=== PATIENT | female | born 1965 | race Caucasian/White ===

== ENCOUNTER 2020-09-20 15:12 | Outpatient (REF) | payer MEDICARE, SELFPAY ==
[2020-09-20 16:59] LABS: Cholesterol 234 mg/dL; HDL Cholesterol 84 mg/dL; LDL Cholesterol Calculated 133 mg/dl; Triglycerides 85 mg/dL
[2020-09-20 17:00] LABS: Ferritin 7 ng/mL (10-250); Vitamin D 25-OH Total 12.4 ng/mL (>30)
== END 2020-09-20 15:13 | disposition home or self-care (01) ==
LOC: HO.LAB 15:12
PROVIDERS: PCP Internal Medicine; Visit Provider Internal Medicine
DX: Z00.01 Encounter for general adult medical examination with abnormal findings (principal); D50.9 Iron deficiency anemia, unspecified; E03.8 Other specified hypothyroidism; E78.00 Pure hypercholesterolemia, unspecified; F41.0 Panic disorder [episodic paroxysmal anxiety]
CPT/HCPCS: 80061; 82306; 82728

== ENCOUNTER 2021-01-23 13:19 | Outpatient (REF) | payer MEDICARE, SELFPAY ==
[2021-01-23 16:42] LABS: MANUAL DIFF FLAG NO
[2021-01-23 16:47] LABS: Basophils Absolute Auto 0.1 X10*3/uL (0.0-0.2); Basophils Percent Auto 0.9 % (0-2); Eosinophils Absolute Auto 0.2 X10*3/uL (0.0-0.4); Eosinophils Percent Auto 2.6 % (0-4); Hematocrit 40.6 % (37-47); Imm Gran Abs Auto 0.02 X10*3/uL (0.00-0.03); Imm Gran Pct Auto 0.3 % (0.0-0.4); Lymphocytes Absolute Auto 4.1 X10*3/uL (1.2-4.9); Lymphocytes Percent Auto 52.7 % (20-40); Mean Corpuscular Hemoglobin 28.4 pg (27.0-33.0); Mean Corpuscular Volume 88.6 fL (80-98); Mean Platelet Volume 11.1 fL (9.4-12.3); Monocytes Absolute Auto 0.6 X10*3/uL (0.1-1.2); Monocytes Percent Auto 8.2 % (2-11); Neutrophils Absolute Auto 2.7 X10*3/uL (2.0-8.3); Neutrophils Percent Auto 35.3 % (45-73); Platelet Count 359 X10*3/uL (160-400); Red Blood Count 4.58 X10*6/uL (4.20-5.50); Red Cell Distribution Width 16.5 % (11.0-16.0); White Blood Count 7.7 X10*3/uL (4.8-10.8)
[2021-01-23 17:05] LABS: Alanine Aminotransferase 16 U/L (0-31); Albumin Level 4.3 g/dL (3.5-5.0); Alkaline Phosphatase 112 U/L (39-117); Anion Gap 18 (12-20); Aspartate Amino Transferase 20 U/L (5-31); Bilirubin Total 0.3 mg/dL (0.0-1.0); Blood Urea Nitrogen 21 mg/dL (9-16); Calcium 9.2 mg/dL (8.4-10.2); Carbon Dioxide 25 mmol/L (22-29); Chloride 104 mmol/L (96-108); Estimated Glomerular Filt Rate > 60; Glucose Random 77 mg/dL (60-115); Potassium 4.5 mmol/L (3.3-5.1); Sodium 142 mmol/L (135-145); Total Protein 7.3 g/dL (6.5-8.0)
[2021-01-23 17:29] LABS: Ferritin 28 ng/mL (10-250); Thyroid Stimulating Hormone 0.71 uIU/mL (0.32-4.0); Vitamin D 25-OH Total 21.5 ng/mL (>30)
== END 2021-01-23 13:20 | disposition home or self-care (01) ==
LOC: HO.HMGCLDS 13:19
PROVIDERS: PCP Internal Medicine; Visit Provider Internal Medicine
DX: D50.8 Other iron deficiency anemias (principal); E03.9 Hypothyroidism, unspecified; F32.9 Major depressive disorder, single episode, unspecified; F41.0 Panic disorder [episodic paroxysmal anxiety]
CPT/HCPCS: 36415; 80053; 82306; 82728; 84443; 85025

== ENCOUNTER 2021-02-14 10:22 | Outpatient (REF) | payer MEDICARE, SELFPAY ==
--- NOTE | ~2021-02-14 | MM_ITS ---
EXAMINATION: MM SCREENING DIGITAL BREAST TOMOSYNTHESIS, BILATERAL CLINICAL INFORMATION: Screening. Asymptomatic. The lifetime risk of breast cancer based on the Tyrer-Cuzick Model is 11%. COMPARISON: Outside mammography: 05/03/2016, 11/12/2012 ([facility]). TECHNIQUE: Digital breast tomosynthesis is performed in both the craniocaudal and mediolateral oblique views along with computer-aided detection (CAD). Synthesized 2D images are generated from the tomosynthesis. FINDINGS: There are scattered areas of fibroglandular density (ACR BI-RADS breast composition Category b). Breast tissue composition borders on heterogeneously dense in the anterior upper outer breast. There are no significant masses, abnormal calcifications, or other abnormalities. Parenchymal pattern is similar to outside exams. No developing density. The axilla and skin contours are unremarkable. MM/MM tomosynthesis screening BI IMPRESSION: No mammographic evidence of malignancy. ASSESSMENT: BI-RADS 1: Negative RECOMMENDATION: Routine annual mammography screening. This patient's information was entered into a reminder system with a target due date for their next mammogram.
--- NOTE | ~2021-02-14 | MM_ITS ---
EXAMINATION: BONE DENSITOMETRY CLINICAL INDICATION: Menopause. COMPARISON: None (current study represents initial baseline exam). TECHNIQUE: Using a Access Intelligence DXA System (software version: 13.1) manufactured by [employer], dual-energy x-ray absorptiometry was performed of the lumbar spine and left hip. The images are of good technical quality. Summary results are attached. FINDINGS: AP SPINE L1-L4: BMD 1.110 g/cm2, Z-score -0.1, T-score -0.6, normal. LEFT FEMUR, NECK: BMD 0.735 g/cm2, Z-score -1.4, T-score -2.2, osteopenia. LEFT FEMUR, TOTAL: BMD 0.690 g/cm2, Z-score -2.1, T-score -2.5, osteoporosis. IDENTIFIED RISK FACTORS: Menopause. HISTORY OF FRACTURE: None listed. MEDICATIONS: Vitamin D. MM/XR DEXA axial skeleton IMPRESSION: 1. DIAGNOSIS: Osteoporosis based on the lowest T-score value of -2.5 in the total femur applying World Health Organization criteria. 2. 10-YEAR FRACTURE RISK PREDICTION, FRAX: Major osteoporotic fracture (clinical spine, forearm, hip or shoulder) 8.1%. Hip fracture 1.1%. 3. Treatment Recommendations: NOF guidelines recommend consideration for treatment in postmenopausal women and men age 50 and older presenting with the following: -A hip or vertebral (clinical or morphometric) fracture. -T-score less than or equal to -2.5 at the femoral neck or spine after appropriate evaluation to exclude secondary causes. -Low bone mass at the hip or spine and a 10-year fracture probability by FRAX of greater than or equal to 3% for hip fracture or greater than or equal to 20% for major osteoporotic fracture based on the [place] adapted WHO algorithm. 4. Other Recommendations: All treatment decisions require clinical judgment and consideration of individual patient factors, including patient preferences, comorbidities, previous drug use, risk factors not captured in the FRAX model (e.g. frailty, falls, vitamin D deficiency, increased bone turnover, interval significant decline in bone density) and possible under or overestimation of fracture risk by FRAX. Additional medical evaluation for secondary cause of low bone mineral density may be appropriate. FUTURE SCAN RECOMMENDATION: People with diagnosed cases of osteoporosis or at high risk for fracture should have regular bone mineral density tests. For patients eligible for Medicare, routine testing is allowed once every 2 years. The testing frequency can be increased to one year for patients who have rapidly progressing disease, those who are receiving or discontinuing medical therapy to restore bone mass, or have additional risk factors.
== END 2021-02-14 10:23 | disposition home or self-care (01) ==
LOC: HO.MAMMO 10:22
PROVIDERS: Visit Provider Internal Medicine
DX: Z13.820 Encounter for screening for osteoporosis (principal); Z78.0 Asymptomatic menopausal state; Z79.899 Other long term (current) drug therapy; Z12.31 Encounter for screening mammogram for malignant neoplasm of breast
CPT/HCPCS: 77063; 77067; 77080

== ENCOUNTER 2021-06-06 12:30 | Outpatient (REF) | payer MEDICARE, SELFPAY ==
[2021-06-06 14:18] LABS: Alanine Aminotransferase 15 U/L (0-31); Albumin Level 4.2 g/dL (3.5-5.0); Alkaline Phosphatase 109 U/L (39-117); Anion Gap 15 (12-20); Aspartate Amino Transferase 20 U/L (5-31); Bilirubin Total 0.3 mg/dL (0.0-1.0); Blood Urea Nitrogen 22 mg/dL (9-16); Calcium 10.4 mg/dL (8.4-10.2); Carbon Dioxide 25 mmol/L (22-29); Chloride 106 mmol/L (96-108); Cholesterol 257 mg/dL; Estimated Glomerular Filt Rate 58; Glucose Random 95 mg/dL (60-115); HDL Cholesterol 75 mg/dL; LDL Cholesterol Calculated 168 mg/dl; Potassium 4.7 mmol/L (3.3-5.1); Sodium 141 mmol/L (135-145); Total Protein 6.9 g/dL (6.5-8.0); Triglycerides 70 mg/dL
[2021-06-06 14:40] LABS: Thyroid Stimulating Hormone 0.69 uIU/mL (0.32-4.0)
== END 2021-06-06 12:31 | disposition home or self-care (01) ==
LOC: HO.HMGCLDS 12:30
PROVIDERS: PCP Internal Medicine; Visit Provider Internal Medicine
DX: E78.00 Pure hypercholesterolemia, unspecified (principal); E89.0 Postprocedural hypothyroidism; F32.89 Other specified depressive episodes; F51.02 Adjustment insomnia; N64.4 Mastodynia; Z90.81 Acquired absence of spleen
CPT/HCPCS: 36415; 80053; 80061; 84443

== ENCOUNTER 2022-04-09 12:34 | Outpatient (REF) | payer MEDICARE, SELFPAY ==
[2022-04-09 14:16] LABS: Cholesterol 340 mg/dL; HDL Cholesterol 78 mg/dL; LDL Cholesterol Calculated 246 mg/dl; Triglycerides 81 mg/dL
[2022-04-09 14:40] LABS: Thyroid Stimulating Hormone 5.49 uIU/mL (0.32-4.0); Vitamin D 25-OH Total 17.3 ng/mL (>30)
== END 2022-04-09 12:35 | disposition home or self-care (01) ==
LOC: HO.HMGCLDS 12:34
PROVIDERS: PCP Internal Medicine; Visit Provider Internal Medicine
DX: Z00.00 Encounter for general adult medical examination without abnormal findings (principal); E78.00 Pure hypercholesterolemia, unspecified; E89.0 Postprocedural hypothyroidism; K21.00 Gastro-esophageal reflux disease with esophagitis, without bleeding; F32.89 Other specified depressive episodes
CPT/HCPCS: 36415; 80061; 82306; 84443

== ENCOUNTER 2022-06-05 07:16 | Outpatient (REF) | payer MEDICARE, SELFPAY ==
[2022-06-05 11:22] LABS: MANUAL DIFF FLAG NO
[2022-06-05 11:47] LABS: Basophils Absolute Auto 0.1 X10*3/uL (0.0-0.2); Basophils Percent Auto 1.2 % (0-2); Eosinophils Absolute Auto 0.4 X10*3/uL (0.0-0.4); Eosinophils Percent Auto 5.4 % (0-4); Hematocrit 36.2 % (37.0-47.0); Hemoglobin 11.6 g/dl (12.0-16.0); Imm Gran Abs Auto 0.01 X10*3/uL (0.00-0.03); Imm Gran Pct Auto 0.1 % (0.0-0.4); Lymphocytes Percent Auto 52.6 % (20-40); Mean Corpuscular Hemoglobin 27.6 pg (27.0-33.0); Mean Corpuscular Volume 86.2 fL (80.0-98.0); Mean Platelet Volume 11.5 fL (9.4-12.3); Monocytes Absolute Auto 0.6 X10*3/uL (0.1-1.2); Monocytes Percent Auto 8.4 % (2-11); Neutrophils Absolute Auto 2.5 x10*3/uL (2.0-8.3); Neutrophils Percent Auto 32.3 % (45-73); Platelet Count 287 X10*3/uL (160-400); Red Cell Distribution Width 15.9 % (11.0-16.0); White Blood Count 7.7 X10*3/uL (4.8-10.8)
[2022-06-05 12:01] LABS: Thyroid Stimulating Hormone 0.95 uIU/mL (0.32-4.0)
[2022-06-05 12:07] LABS: Alanine Aminotransferase 22 U/L (0-31); Albumin Level 4.3 g/dL (3.5-5.0); Alkaline Phosphatase 97 U/L (39-117); Anion Gap 17 (12-20); Aspartate Amino Transferase 28 U/L (5-31); Bilirubin Total 0.4 mg/dL (0.0-1.0); Blood Urea Nitrogen 24 mg/dL (9-16); Calcium 8.9 mg/dL (8.4-10.2); Carbon Dioxide 20 mmol/L (22-29); Chloride 108 mmol/L (96-108); Cholesterol 173 mg/dL; Estimated Glomerular Filt Rate 44; Glucose Random 92 mg/dL (60-115); HDL Cholesterol 79 mg/dL; LDL Cholesterol Calculated 80 mg/dl; Potassium 4.1 mmol/L (3.3-5.1); Sodium 141 mmol/L (135-145); Triglycerides 72 mg/dL
== END 2022-06-05 07:17 | disposition home or self-care (01) ==
LOC: HO.HMGCLDS 07:16
PROVIDERS: PCP Internal Medicine; Visit Provider Internal Medicine
DX: E78.00 Pure hypercholesterolemia, unspecified (principal); E89.0 Postprocedural hypothyroidism; F32.9 Major depressive disorder, single episode, unspecified; F41.0 Panic disorder [episodic paroxysmal anxiety]
CPT/HCPCS: 36415; 80053; 80061; 84443; 85025

== ENCOUNTER 2023-02-05 11:30 | Outpatient (REF) | payer MEDICARE, SELFPAY ==
[2023-02-05 14:05] LABS: MANUAL DIFF FLAG NO
[2023-02-05 14:10] LABS: Basophils Absolute Auto 0.1 X10*3/uL (0.0-0.2); Basophils Percent Auto 0.8 % (0-2); Eosinophils Absolute Auto 0.3 X10*3/uL (0.0-0.4); Eosinophils Percent Auto 3.8 % (0-4); Hematocrit 39.4 % (37.0-47.0); Hemoglobin 13.1 g/dl (12.0-16.0); Imm Gran Abs Auto 0.02 X10*3/uL (0.00-0.03); Imm Gran Pct Auto 0.3 % (0.0-0.4); Lymphocytes Absolute Auto 2.9 X10*3/uL (1.2-4.9); Lymphocytes Percent Auto 43.9 % (20-40); Mean Corpuscular HGB Conc 33.2 g/dl (31.0-35.0); Mean Corpuscular Hemoglobin 27.9 pg (27.0-33.0); Mean Corpuscular Volume 83.8 fL (80.0-98.0); Mean Platelet Volume 11.3 fL (9.4-12.3); Monocytes Absolute Auto 0.5 X10*3/uL (0.1-1.2); Monocytes Percent Auto 7.4 % (2-11); Neutrophils Absolute Auto 2.9 x10*3/uL (2.0-8.3); Neutrophils Percent Auto 43.8 % (45-73); Platelet Count 300 X10*3/uL (160-400); Red Cell Distribution Width 16.3 % (11.0-16.0); White Blood Count 6.5 X10*3/uL (4.8-10.8)
[2023-02-05 14:48] LABS: Alanine Aminotransferase 32 U/L (0-31); Alkaline Phosphatase 97 U/L (39-117); Anion Gap 13 (12-20); Aspartate Amino Transferase 34 U/L (5-31); Bilirubin Total 0.5 mg/dL (0.0-1.0); Blood Urea Nitrogen 18 mg/dL (9-16); Calcium 9.1 mg/dL (8.4-10.2); Carbon Dioxide 22 mmol/L (22-29); Chloride 108 mmol/L (96-108); Estimated Glomerular Filt Rate 39; Glucose Random 107 mg/dL (60-115); Potassium 3.9 mmol/L (3.3-5.1); Sodium 139 mmol/L (135-145); Total Protein 6.6 g/dL (6.5-8.0)
[2023-02-05 15:03] LABS: Thyroid Stimulating Hormone 0.02 uIU/mL (0.32-4.0)
== END 2023-02-05 11:31 | disposition home or self-care (01) ==
LOC: HO.HMGCLDS 11:30
PROVIDERS: PCP Internal Medicine; Visit Provider Internal Medicine
DX: Z00.00 Encounter for general adult medical examination without abnormal findings (principal); E78.00 Pure hypercholesterolemia, unspecified; E89.0 Postprocedural hypothyroidism; K21.9 Gastro-esophageal reflux disease without esophagitis; M70.62 Trochanteric bursitis, left hip
CPT/HCPCS: 36415; 80053; 84443; 85025

== ENCOUNTER 2023-06-27 10:34 | Outpatient (REF) | payer MEDICARE, SELFPAY ==
[2023-06-27 13:41] LABS: MANUAL DIFF FLAG NO
[2023-06-27 13:53] LABS: Basophils Absolute Auto 0.1 X10*3/uL (0.0-0.2); Eosinophils Absolute Auto 0.3 X10*3/uL (0.0-0.4); Eosinophils Percent Auto 3.7 % (0-4); Hematocrit 36.8 % (37.0-47.0); Hemoglobin 12.1 g/dl (12.0-16.0); Imm Gran Abs Auto 0.02 X10*3/uL (0.00-0.03); Imm Gran Pct Auto 0.3 % (0.0-0.4); Lymphocytes Absolute Auto 3.2 X10*3/uL (1.2-4.9); Lymphocytes Percent Auto 48.5 % (20-40); Mean Corpuscular HGB Conc 32.9 g/dl (31.0-35.0); Mean Corpuscular Volume 88.2 fL (80.0-98.0); Mean Platelet Volume 11.2 fL (9.4-12.3); Monocytes Absolute Auto 0.5 X10*3/uL (0.1-1.2); Monocytes Percent Auto 7.9 % (2-11); Neutrophils Absolute Auto 2.6 x10*3/uL (2.0-8.3); Neutrophils Percent Auto 38.6 % (45-73); Platelet Count 263 X10*3/uL (160-400); Red Blood Count 4.17 X10*6/uL (4.20-5.50); Red Cell Distribution Width 16.8 % (11.0-16.0); White Blood Count 6.7 X10*3/uL (4.8-10.8)
[2023-06-27 14:19] LABS: Alanine Aminotransferase 31 U/L (0-31); Albumin Level 4.1 g/dL (3.5-5.0); Alkaline Phosphatase 75 U/L (39-117); Anion Gap 11 (12-20); Aspartate Amino Transferase 36 U/L (5-31); Bilirubin Total 0.5 mg/dL (0.0-1.0); Blood Urea Nitrogen 20 mg/dL (9-16); Calcium 9.3 mg/dL (8.4-10.2); Carbon Dioxide 26 mmol/L (22-29); Chloride 106 mmol/L (96-108); Cholesterol 170 mg/dL (<200); Estimated Glomerular Filt Rate 44; Glucose Random 95 mg/dL (60-115); HDL Cholesterol 78 mg/dL (>40); LDL Cholesterol Calculated 77 mg/dL (<100); Potassium 4.2 mmol/L (3.3-5.1); Sodium 139 mmol/L (135-145); Total Protein 7.1 g/dL (6.5-8.0); Triglycerides 79 mg/dL (<150)
[2023-06-27 14:41] LABS: Thyroid Stimulating Hormone 0.34 uIU/mL (0.32-4.0); Vitamin D 25-OH Total 46.5 ng/mL (>30)
== END 2023-06-27 10:35 | disposition home or self-care (01) ==
LOC: HO.HMGCLDS 10:34
PROVIDERS: PCP Internal Medicine; Visit Provider Internal Medicine
DX: E05.90 Thyrotoxicosis, unspecified without thyrotoxic crisis or storm (principal); E89.0 Postprocedural hypothyroidism; F32.9 Major depressive disorder, single episode, unspecified; N18.9 Chronic kidney disease, unspecified; R12 Heartburn
CPT/HCPCS: 36415; 80053; 80061; 82306; 84443; 85025

== ENCOUNTER 2023-12-03 15:48 | Outpatient (AMB) | payer MEDICARE, SELFPAY ==
--- NOTE | 2023-12-03 16:14 | MHC.PC.OV ---
Vital Signs 12/03/23 16:15 Height 5 ft 0.5 in Weight 173 lb 8 oz BMI 33.3 BP 128/82 Blood Pressure Location Rt brachial Position Sitting Pulse 94 Pulse Source Pulse Oximeter Pulse Oximetry (%) 97 Oxygen Delivery Method Room Air Intake Visit Reasons: Annual PE Intake Note: Pt is [facility] to [facility] care and Annual PE Pt is over due for her Mammo Allergies apples Allergy (Unknown, Uncoded 12/03/23 16:22) anaphylaxis TREE NUTS Allergy (Unknown, Uncoded 12/03/23 16:22) RASH tree nuts Allergy (Unknown, Uncoded 12/03/23 16:22) anaphylaxis Medication List - Last Reconciled 12/03/23 by JOSE Gordon fluoxetine 40 mg PO DAILY hydroxyzine HCl 50 mg PO QID PRN levothyroxine 100 mcg PO DAILY omeprazole 40 mg PO DAILY quetiapine 50 mg PO QDAY rosuvastatin 40 mg PO DAILY Tobacco use date assessed: 12/03/23 Dental Screening Dental Screen Date: 12/03/23 Did you have a dental visit in the last 12 months?: Yes Did you have a dental problem in the last 6 months where you did not have access to dental care?: No Was dental information given to patient?: Patient has dentist HPI Annual PE HPI Details New pt is here for a PE. Will order labs. Due for mammo, will order. Colon screen is up to date. Pt does not have a meat scrubber, will refer. Pt reports she financially can't afford or therapist or psychiatrist, though reports she is doing well on her current med regime. Pt reports having a lot of trauma in their life. Pt reports being unemployed in March of 2017. She does report that she has high anxiety, seldom leaving her house because of it. Will have team reach out to pt. Denies any SI and HI. Hx of vitamin D deficiency, will order labs. [facility] Medical History (Updated 12/03/23 @ 17:26 by JOSE Gordon) Idiopathic thrombocytopenic purpura (ITP) Hodgkins lymphoma Surgical History (Updated 12/03/23 @ 17:26 by JOSE Gordon) History of splenectomy Social History Housing: Condominium Patient Tobacco Use Status: Never used Tobacco e-Cigarette/Vaping Use: Never Used Second Hand Smoke Exposure: No service: No Current occupational status: disabled Cognitive needs: No Hearing needs: No Vision needs: No Questionnaire PHQ-9 Over the last 2 weeks, how often have you been bothered by any of the following problems? 1. Little interest or pleasure in doing things: more than half the days 2. Feeling down, depressed, or hopeless: more than half the days 3. Trouble falling or staying asleep, or sleeping too much: nearly every day 4. Feeling tired or having little energy: more than half the days 5. Poor appetite or overeating: nearly every day 6. Feeling bad about yourself - or that you are a failure or have let yourself or your family down: more than half the days 7. Trouble concentrating on things, such as reading the newspaper or watching television: several days 8. Moving or speaking so slowly that other people could have noticed. Or the opposite - being so fidgety or restless that you have been moving around a lot more than usual: not at all 9. Thoughts that you would be better off or of hurting yourself in some way: not at all Total score: 15 Depression Screening Interpretation: Positive Depression Screening Follow-up: Existing condition and Community Mental Health Worker F/U Depression Screening Done: Yes 34865 - PHQ-9 Billing: Yes Source: Developed by Drs. Rolando Mendoza, Carol Michaels, Rashaad Thornton and colleagues, with an educational donita from [employer]. Thrive Questionnaire Date Thrive assessed: 12/03/23 I am a: Patient What is your living situation today?: I have a steady place to live Within the past 12 months, did the food you bought not last and you didn't have the money to get more?: Sometimes True Within the past 12 months, did you worry whether your food would run out before you got money to buy more?: Often true Do you have trouble getting transportation to medical appointments?: No Do you have trouble paying your heating and electricity bill?: Yes Do you have trouble taking care of your child, family member or friend?: No Do you have trouble with day-to-day activities such as bathing, preparing meals, shopping, managing finances, etc.?: Yes Are you currently unemployed and looking for a job?: Yes Are you interested in more education?: Yes Currently or been in a relationship where the following occur: no concerns reported THRIVE Score: 3 AUDIT C Alcohol Use Questionnaire (AUDIT-C) 1. How often do you have a drink containing alcohol?: Never 3. How often do you have six or more drinks on one occasion?: Never Total Score: 0 Score Reviewed/Action Taken: Yes DARREN-7 AMB Questionnaire DARREN-7 Date DARREN - 7 assessed: 12/03/23 Feeling nervous, anxious, or on edge: 3 = Nearly every day Not being able to stop or control worryin = More than half the days Worrying too much about different things: 3 = Nearly every day Trouble relaxin = Nearly every day Being so restless that it is hard to sit still: 2 = More than half the days Becoming easily annoyed or irritable: 0 = Not at all Feeling afraid as if something awful might happen: 2 = More than half the days Total DARREN-7 score (0-4 normal; 5-9 mild; 10-14 moderate; 15-21 severe): 15 Source: Developed by Drs. Rolando Mendoza, Carol Michaels, Rashaad Thornton and colleagues, with an educational donita from [employer]. DARREN-7 Assessment Billing DARREN-7 Assessment Tool: DARREN-7 Assessment 24946 (will speak with our team, pt could use a therapist/psychiatrist) Review of Systems Const Denies chills and Denies fever(s) Eyes Denies blurry vision ENT Denies vertigo, Denies dizziness and Denies sore throat Card Denies chest pain at rest, Denies chest pain with activity, Denies diaphoresis, Denies dyspnea and Denies dyspnea on exertion Resp Denies cough, Denies dyspnea, Denies dyspnea on exertion and Denies wheezing GI Denies abdominal pain, Denies melena, Denies hematochezia, Denies constipation, Denies diarrhea and Denies loose stools Denies hematuria Musc Denies numbness and Denies tingling Skin/Breast Denies lesions Neuro Denies vertigo, Denies dizziness, Denies numbness and Denies tingling Psych Denies anxiety, Denies depression, Denies homicidal ideation, Denies suicidal ideation and Denies other (substance abuse) Aller/Immun Denies wheezing Physical exam (Primary Care) Vital Signs: Last Vital Signs Pulse 94 12/03/23 16:15 BP 128/82 12/03/23 16:15 Pulse Ox 97 12/03/23 16:15 Oxygen Delivery Method Room Air 12/03/23 16:15 BMI result Body Mass Index 33.3 Tobacco/Smoking Status: Tobacco use Status Tobacco use date assessed 12/03/23 12/03/23 16:28 Patient Tobacco Use Status Never used Tobacco 12/03/23 16:28 e-Cigarette/Vaping Use Never Used 12/03/23 16:28 PHQ-9: PHQ-9 Score PHQ-9: Total score 15 12/03/23 16:32 Depression Screening Interpretation: Positive Depression Screening Follow-up: Existing condition and Community Mental Health Worker F/U Thrive Assessment: Date of Thrive Assessment Date Thrive assessed 12/03/23 12/03/23 16:32 Currently or been in a relationship where the following occur: no concerns reported Const General: cooperative Nutritional Appearance: obese Orientation/consciousness: patient oriented x3 HENMT Head: Yes normal to inspection, Yes normocephalic and Yes atraumatic Ears: TM's normal bilaterally Eyes General: appearance normal, both eyes and all related structures Alignment and Position: alignment normal and position normal Neck Neck: Yes normal visual inspection and Yes no lymphadenopathy Thyroid: Thyroid normal Resp Effort & Inspection: normal respiratory effort Auscultation: clear to auscultation bilaterally Cardio Rate: regular rate Rhythm: regular rhythm Heart sounds: S1 normal heart sound present, S2 normal heart sound present and Murmur heart sound present systolic GI Palpation (GI): Soft to palpation and nontender Auscultation: normal bowel sounds Skin Rashes: no rashes Neuro General: patient oriented x3, moves all extremities, no focal motor deficits and deep tendon reflexes 2+ bilaterally Romberg Test: Negative Psych Appearance: grossly normal Mental Status: mental status grossly normal Speech and movement: Normal speech and movement present Affect: normal affect Attitude: cooperative Thought process: Normal thought process present Thought content: Normal thought content present Insight: Good insight present (Psych) Judgement: Good judgement present (Psych) Assessment and Plan Assessment & Plan (1) Physical exam: Code(s): Z00.00 - Encounter for general adult medical examination without abnormal findings Plan: Labs ordered (2) Screening for cervical cancer: Code(s): Z12.4 - Encounter for screening for malignant neoplasm of cervix Plan: Referred to meat scrubber (3) Systolic murmur: Code(s): R01.1 - Cardiac murmur, unspecified Plan: Echo ordered (4) Vitamin D deficiency: Code(s): E55.9 - Vitamin D deficiency, unspecified Plan: Labs ordered Plan The patient agreed to the use of a pediatrician/medical doctor for this encounter. Scribed for KJ Wright-FAIZAN by Angeline Ramirez pediatrician/medical doctor, on 12/03/2023 at 16:50 EST. Orders: Orders Complete Blood Count Auto Diff Today Z00.00 - Encounter for general adult medical examination without abnormal findings Comprehensive [place]. Panel Fast Today Z00.00 - Encounter for general adult medical examination without abnormal findings MM screening mammo BI Today Z12.31 - Encounter for screening mammogram for malignant neoplasm of breast CA echo transthoracic complete Today R01.1 - Cardiac murmur, unspecified TSH reflex Free T4 Today Z00.00 - Encounter for general adult medical examination without abnormal findings UA CC w/rflx Micro + Cult Today Z00.00 - Encounter for general adult medical examination without abnormal findings Lipid Panel Today Z00.00 - Encounter for general adult medical examination without abnormal findings Vitamin D 25-OH Total Today E55.9 - Vitamin D deficiency, unspecified Referrals ENDOSCOPY NURSE Referral Z12.4 - Encounter for screening for malignant neoplasm of cervix Coding Level of Care Code New Pt Prev Care 40-64y(45407) Diagnoses Physical exam Z00.00 Screening for cervical cancer Z12.4 Systolic murmur R01.1 Vitamin D deficiency E55.9 Additional Codes DARREN-7 Assessment Billing - DARREN-7 Assessment Tool: DARREN-7 Assessment [id number] ([id number])
[2023-12-03 16:15] VITALS: BP 128/82; PULSE 94; O2SAT 97; BMI 33.3
== END 2023-12-03 17:22 | disposition home or self-care (01) ==
PROVIDERS: PCP Internal Medicine; Visit Provider Nurse Practitioner Family
DX: Z00.00 Encounter for general adult medical examination without abnormal findings (principal); Z12.4 Encounter for screening for malignant neoplasm of cervix; R01.1 Cardiac murmur, unspecified; E55.9 Vitamin D deficiency, unspecified
CPT/HCPCS: 99386

== ENCOUNTER 2023-12-10 11:07 | Outpatient (REF) | payer MEDICARE, SELFPAY ==
[2023-12-10 13:28] LABS: MANUAL DIFF FLAG NO
[2023-12-10 13:31] LABS: Basophils Percent Auto 0.5 % (0-2); Eosinophils Absolute Auto 0.2 X10*3/uL (0.0-0.4); Eosinophils Percent Auto 3.8 % (0-4); Hematocrit 39.5 % (37.0-47.0); Imm Gran Abs Auto 0.01 X10*3/uL (0.00-0.03); Imm Gran Pct Auto 0.2 % (0.0-0.4); Lymphocytes Absolute Auto 2.7 X10*3/uL (1.2-4.9); Lymphocytes Percent Auto 44.2 % (20-40); Mean Corpuscular HGB Conc 32.9 g/dl (31.0-35.0); Mean Corpuscular Hemoglobin 28.1 pg (27.0-33.0); Mean Corpuscular Volume 85.5 fL (80.0-98.0); Mean Platelet Volume 10.7 fL (9.4-12.3); Monocytes Absolute Auto 0.6 X10*3/uL (0.1-1.2); Monocytes Percent Auto 9.6 % (2-11); Neutrophils Absolute Auto 2.5 x10*3/uL (2.0-8.3); Neutrophils Percent Auto 41.7 % (45-73); Platelet Count 303 X10*3/uL (160-400); Red Blood Count 4.62 X10*6/uL (4.20-5.50); Red Cell Distribution Width 15.9 % (11.0-16.0)
[2023-12-10 13:47] LABS: Appearance Urine Clear; Color Urine Yellow; Glucose Urine UA Negative (Negative); Leukocyte Esterase Urine Negative (Negative); Nitrite Urine Negative (Negative); UMIC TRIGGER UACC YES; Urine Blood Negative (Negative); Urine Ketones Negative (Negative); Urine Protein 100 (2+) mg/dL (Neg-Trace)
[2023-12-10 13:59] LABS: Bacteria Urine None Seen (None Seen); Hyaline Casts Urine 0-2 /LPF (0-2); RBC Urine 0-2 /HPF (0-2); Squamous Epithelial Cell Urine 0-2 /HPF (0-2); WBC Urine 0-5 /HPF (0-5)
[2023-12-10 14:08] LABS: Alanine Aminotransferase 18 U/L (0-31); Albumin Level 4.1 g/dL (3.5-5.0); Alkaline Phosphatase 89 U/L (39-117); Anion Gap 13 (12-20); Aspartate Amino Transferase 26 U/L (5-31); Bilirubin Total 0.4 mg/dL (0.0-1.0); Blood Urea Nitrogen 15 mg/dL (9-16); Calcium 9.3 mg/dL (8.4-10.2); Carbon Dioxide 25 mmol/L (22-29); Chloride 105 mmol/L (96-108); Cholesterol 174 mg/dL (<200); Estimated Glomerular Filt Rate 44; Glucose Fasting 91 mg/dL (60-99); HDL Cholesterol 89 mg/dL (>40); LDL Cholesterol Calculated 73 mg/dL (<100); Potassium 4.1 mmol/L (3.3-5.1); Sodium 139 mmol/L (135-145); Total Protein 7.2 g/dL (6.5-8.0); Triglycerides 64 mg/dL (<150)
[2023-12-10 14:15] LABS: TSH reflex Free T4 0.53 uIU/mL (0.32-4.0); Vitamin D 25-OH Total 22.2 ng/mL (>30)
== END 2023-12-10 11:08 | disposition home or self-care (01) ==
LOC: HO.HMGCLDS 11:07
PROVIDERS: PCP Nurse Practitioner Family; Visit Provider Nurse Practitioner Family
DX: Z00.00 Encounter for general adult medical examination without abnormal findings (principal); E55.9 Vitamin D deficiency, unspecified
CPT/HCPCS: 36415; 80053; 80061; 81001; 82306; 84443; 85025

== ENCOUNTER 2023-12-12 16:16 | Outpatient (REF) | payer MEDICARE, SELFPAY | END 2023-12-12 16:17 | disposition home or self-care (01) | LOC: HO.MAMMO 16:16 | PROVIDERS: PCP Nurse Practitioner Family; Visit Provider Nurse Practitioner Family | DX: Z12.31 Encounter for screening mammogram for malignant neoplasm of breast (principal) | CPT/HCPCS: 77063; 77067 ==

== ENCOUNTER → 2023-12-12 16:30 | Outpatient (BNV) | payer MEDICARE, SELFPAY | PROVIDERS: PCP Nurse Practitioner Family; Visit Provider Radiology Diagnostic Radiology | DX: Z12.31 Encounter for screening mammogram for malignant neoplasm of breast (principal) | CPT/HCPCS: 77063; 77067 ==

== ENCOUNTER → 2024-01-15 12:53 | Outpatient (REF) | payer MEDICARE, SELFPAY ==
--- NOTE | 2024-01-15 12:55 | CA_ITS ---
Transthoracic Echocardiogram Patient (Last, First, Middle): Teresita Wilson S Gender: Female Date of : 1965 Age: 58 Procedure Date: 01/15/2024 Procedure Type: Transthoracic Echocardiogram Location: OP Height: 154.94 cm Weight: 70.31 kg BSA: 1.70 m2 Heart Rate: bpm BP: 122 / 60 mmHg Cranberry Grower: Referring MD: Malvin Medina [facility] Distance Learning Coordinator: Gilse Anthony MD Symptoms: R01.1 - Cardiac murmur, unspecified Study Quality: Good ECG Rhythm: Sinus Conclusions: - 1. Normal LV ejection fraction of 60 65% with impaired relaxation filling pattern 2. [id number]-dw-hqkvzmdi mitral and aortic regurgitation 3. Normal RV systolic pressure 4. No gross pericardial effusion Findings Left Ventricle Normal left ventricular size, thickness, and systolic function. The visually estimated ejection fraction is between 60-65%. Spectral Doppler is indicative of an impaired relaxation filling pattern. E/E prime ratio is between 8 and 15 consistent with indeterminate filling pressures. Right Ventricle Normal right ventricular cavity size and systolic function. Atria Both atria are normal in size. There is no evidence of interatrial shunt. Aortic Valve Normal aortic valve structure and function. There is no aortic valve stenosis. There is mild to moderate aortic valve regurgitation. Mitral Valve Normal mitral valve structure and function. There is mild to moderate mitral valve regurgitation. There is no mitral valve stenosis. Pulmonic Valve The pulmonic valve is likely normal. There is trace pulmonic valve regurgitation. Tricuspid Valve Normal tricuspid valve structure. There is trace tricuspid valve regurgitation. The right ventricular systolic pressure is normal. The right ventricular systolic pressure is 31 mmHg. Normal right atrial pressure. There is no evidence of pulmonary hypertension. Great Vessels All visible segments of the aorta are normal in size. The pulmonary artery was not well visualized. There is no dilatation of the ascending aorta measuring 2.80 cm. Venous The inferior vena cava is normal in size and collapses greater than 50% with inspiration. Pericardium/Pleural There is no evidence of pericardial effusion. Prior Study Comparison No prior study available for comparison. Measurements 2D Linear Measurements IVSd: 1.04 0.6-0.9/0.6-1.0 cm LVIDd: 4.06 3.9-5.3/4.2-5.9 cm LVIDd Index: 2.39 2.4-3.2/2.2-3.1 cm/m2 LVIDs: 2.70 2.0-3.6 cm LVPWd: 1.06 0.7-1.1 cm Ao Root: 2.80 2.1-3.5 cm LA Diam: 3.40 2.7-3.8/3.0-4.0 cm LAIDs Index: 2.00 1.5-2.3 cm/m2 LV Mass: 173.49 67-162/88-224 g LV Mass Index: 102.06 43-95/49-115 g/m2 LVOT Diam: 2.00 3.0+(-)1.3 cm Mitral Valve MV VTI: 0.39 MV Pk Damaso: 1.55 MV Mn Damaso: 0.87 MV Pk Grad: 10.00 MV Mn Grad: 4.00 MV Pk E: 0.86 MV PK A: 1.20 MV Decel Time: 139.00 E/A: 0.70 E'Lateral: 7.72 E'Medial: 5.22 E/E' Med: 16.40 E/E' Lat: 11.10 PHT: 41.00 MVA PHT: 5.37 MVA Continuity: 2.75 Decel [place]: 6.18 Aortic Valve AoV Pk Damaso: 2.02 AoV Mn Damaso: 1.24 AoV VTI: 0.47 AoV Pk Grad: 16.00 Aov Mn Grad: 7.00 MALAIKA Cont.VTI: 2.30 AI Pk Damaso: 4.30 AI VTI: 1.65 AI [place]: 3.77 LVOT LVOT Pk Damaso: 1.59 LVOT Mn Damaso: 0.98 LVOT VTI: 0.34 LVOT Pk Grad: 10.00 LVOT Mn Grad: 5.00 LVOT Diam: 2.00 LVOT Area: 3.14 Diastolic Function MV Pk E: 0.86 MV Pk A: 1.20 E/A: 0.70 E'Medial: 5.22 E/E' Med: 16.40 E' Laterial: 7.72 E/E' Lat: 11.10 Right Ventricle TAPSE (mm): 28.00 TVS' Damaso: 12.00 Tricuspid Valve TR Pk Damaso: 2.64 TR Pk Grad: 28.00 RA Press: 3.00 RVSP: 31.00 Great Vessels Aorta Ao Root-2D: 2.80 2.0-3.7 cm Ao Asc: 2.80 2.1-3.4 cm Pulmonary Valve PV Pk Damaso: 0.97 Peak PV Grad: 4.00 Updated in Other Vendor System with Status of Final Giles Anthony MD electronically signed on 01/16/2024 5:11:13 PM with status of Final
== END ==
LOC: HO.CARD 12:53
PROVIDERS: PCP Nurse Practitioner Family; Visit Provider Nurse Practitioner Family
DX: R01.1 Cardiac murmur, unspecified (principal)
CPT/HCPCS: 93306

== ENCOUNTER → 2024-01-15 12:55 | Outpatient (BNV) | payer MEDICARE, SELFPAY | PROVIDERS: PCP Nurse Practitioner Family; Visit Provider Internal Medicine Cardiovascular Disease | DX: I35.1 Nonrheumatic aortic (valve) insufficiency (principal); I34.81 Nonrheumatic mitral (valve) annulus calcification | CPT/HCPCS: 93306 ==

== ENCOUNTER 2024-01-29 08:17 | Outpatient (AMB) | payer MEDICARE, SELFPAY ==
--- NOTE | 2024-01-29 07:15 | MHC.PC.OV ---
Intake Visit Reasons: Review Echocardiogram Results Allergies apples Allergy (Unknown, Uncoded 12/03/23 16:22) anaphylaxis TREE NUTS Allergy (Unknown, Uncoded 12/03/23 16:22) RASH tree nuts Allergy (Unknown, Uncoded 12/03/23 16:22) anaphylaxis Tobacco use date assessed: 12/03/23 HPI Review Echocardiogram Results HPI Details Pt had a recent echo due to a systolic murmur. Echo showed normal LV ejection fraction of 60 65% with impaired relaxation filling pattern. [id number]-bb-ozihxbzh mitral and aortic regurgitation. Normal RV systolic pressure. No gross pericardial effusion. Discussed results with pt. Will monitor pt's blood pressure, cholesterol, and encouraged weight loss. Will repeat echo in the future. Pt has been working on her diet. Denies chest pain, shortness of breath, and dizziness. [facility] Medical History (Updated 01/29/24 @ 07:38 by KJ Gordon-FAIZAN) Aortic regurgitation Idiopathic thrombocytopenic purpura (ITP) Hodgkins lymphoma Surgical History (Updated 12/03/23 @ 17:26 by JOSE Gordon) History of splenectomy Social History Housing: Condominium Patient Tobacco Use Status: Never used Tobacco e-Cigarette/Vaping Use: Never Used Second Hand Smoke Exposure: No service: No Current occupational status: disabled Cognitive needs: No Hearing needs: No Vision needs: No Questionnaire Thrive Questionnaire Date Thrive assessed: 12/03/23 DARREN-7 AMB Questionnaire DARREN-7 Date DARREN - 7 assessed: 12/03/23 Source: Developed by Drs. Rolando Mendoza, Carol Michaels, Rashaad Thornton and colleagues, with an educational donita from [employer]. Review of Systems Const Reports as per HPI Physical exam (Primary Care) Tobacco/Smoking Status: Tobacco use Status Tobacco use date assessed 12/03/23 01/29/24 07:19 Patient Tobacco Use Status Never used Tobacco 01/29/24 07:19 e-Cigarette/Vaping Use Never Used 01/29/24 07:19 Thrive Assessment: Date of Thrive Assessment Date Thrive assessed 12/03/23 01/29/24 07:19 Const General: cooperative Orientation/consciousness: patient oriented x3 Neuro General: patient oriented x3 Psych Appearance: grossly normal Mental Status: mental status grossly normal Speech and movement: Clear speech present Affect: normal affect Attitude: cooperative Thought process: Normal thought process present Thought content: Normal thought content present Insight: Good insight present (Psych) Judgement: Good judgement present (Psych) Telehealth Telehealth Location of provider rendering services: practice address Location of patient: address on file Patient Identification confirmed using: Name, : Yes Telehealth method: video Patient verbally consented to treatment: Yes Patient verbally consented to billing insurance company: Yes Patient informed of any privacy concerns related to visit: Yes Minutes spent on Phone/Video with Pt.: 10 Assessment and Plan Assessment & Plan (1) Mitral regurgitation: Code(s): I34.0 - Nonrheumatic mitral (valve) insufficiency (2) Aortic regurgitation: Code(s): I35.1 - Nonrheumatic aortic (valve) insufficiency (3) Obesity: Code(s): E66.9 - Obesity, unspecified Plan: instructed pt to work on diet, encouraged weight loss. Also recommended watching Choles and BPs Plan The patient agreed to the use of a medical associate for this encounter. Scribed for KJ Wright-BC by Angeline Ramirez medical associate, on 01/29/2024 at 07:15 EST. Medications: New hydroxyzine HCl 50 mg PO QID PRN 90 tabs 0RF itching quetiapine 50 mg PO QDAY 90 tabs 0RF fluoxetine 40 mg PO DAILY 90 caps 0RF levothyroxine 100 mcg PO DAILY 90 caps 0RF omeprazole 40 mg PO DAILY 90 caps 0RF rosuvastatin 40 mg PO DAILY 90 tabs 0RF Coding Level of Care Code Tele Est Pt Level 3 (17470) Diagnoses Mitral regurgitation I34.0 Aortic regurgitation I35.1 Obesity E66.9
== END 2024-01-29 08:18 | disposition home or self-care (01) ==
LOC: HO.HMGC 08:17
PROVIDERS: PCP Nurse Practitioner Family; Visit Provider Nurse Practitioner Family
DX: I34.0 Nonrheumatic mitral (valve) insufficiency (principal); I35.1 Nonrheumatic aortic (valve) insufficiency; E66.9 Obesity, unspecified
CPT/HCPCS: 99213

== ENCOUNTER 2024-03-19 12:41 | Outpatient (AMB) | payer MEDICARE, SELFPAY ==
--- NOTE | 2024-03-19 12:50 | A.OFFPC_ITS ---
Vital Signs 03/19/24 12:54 Height 5 ft 0.5 in Weight 181 lb BMI 34.8 BP 130/70 Blood Pressure Location Rt brachial Position Sitting Pulse 84 Pulse Source Pulse Oximeter Pulse Oximetry (%) 98 Oxygen Delivery Method Room Air Intake Visit Reasons: 4 Month follow up Intake Note: Patient here to discuss labs Allergies apples Allergy (Unknown, Uncoded 03/19/24 13:39) anaphylaxis TREE NUTS Allergy (Unknown, Uncoded 03/19/24 13:39) RASH tree nuts Allergy (Unknown, Uncoded 03/19/24 13:39) anaphylaxis Medication List - Last Reconciled 03/19/24 by JOSE Gordon fluoxetine 40 mg PO DAILY hydroxyzine HCl 50 mg PO QID PRN levothyroxine 100 mcg PO DAILY omeprazole 40 mg PO DAILY quetiapine 50 mg PO QDAY rosuvastatin 40 mg PO DAILY Tobacco use date assessed: 12/03/23 Dental Screening Dental Screen Date: 12/03/23 HPI 4 Month follow up HPI Details Pt c/o increased anxiety. She reports panic attacks when leaving her house and in general. Pt is taking hydroxyzine 50mg as needed but reports that this is not helpful. She is also taking fluoxetine 40mg. Will increase this to 60mg. Pt has tried clonazepam in the past for acute anxiety which helped. Will send short duration of this. Educated pt on risk of addiction, this is not a long-term med. Pt understands that they can not drive while taking this med, share this med, and to only take as prescribed. Pt reports that she is not sleeping well. Will send prazosin. Pt has the number for a therapist. Denies any SI and HI. [facility] Medical History (Updated 03/19/24 @ 13:52 by JOSE Gordon) Aortic regurgitation Idiopathic thrombocytopenic purpura (ITP) Hodgkins lymphoma Surgical History (Updated 12/03/23 @ 17:26 by JOSE Gordon) History of splenectomy Social History Housing: Condominium Patient Tobacco Use Status: Never used Tobacco e-Cigarette/Vaping Use: Never Used Second Hand Smoke Exposure: No service: No Current occupational status: disabled Cognitive needs: No Hearing needs: No Vision needs: No Questionnaire Thrive Questionnaire Date Thrive assessed: 12/03/23 DARREN-7 AMB Questionnaire DARREN-7 Date DARREN - 7 assessed: 12/03/23 Source: Developed by Drs. Rolando Mendoza, Carol Michaels, Rashaad Thornton and colleagues, with an educational donita from [employer]. Review of Systems Const Reports as per HPI Physical exam (Primary Care) Vital Signs: Last Vital Signs Pulse 84 03/19/24 12:54 BP 130/70 03/19/24 12:54 Pulse Ox 98 03/19/24 12:54 Oxygen Delivery Method Room Air 03/19/24 12:54 BMI result Body Mass Index 34.8 Tobacco/Smoking Status: Tobacco use Status Tobacco use date assessed 12/03/23 03/19/24 12:51 Patient Tobacco Use Status Never used Tobacco 03/19/24 12:51 e-Cigarette/Vaping Use Never Used 03/19/24 12:51 Thrive Assessment: Date of Thrive Assessment Date Thrive assessed 12/03/23 03/19/24 12:51 Const General: cooperative Nutritional Appearance: obese Orientation/consciousness: patient oriented x3 Resp Effort & Inspection: normal respiratory effort Auscultation: clear to auscultation bilaterally Cardio Rate: regular rate Rhythm: regular rhythm Heart sounds: S1 normal heart sound present, S2 normal heart sound present and Murmur heart sound present systolic Neuro General: patient oriented x3 Psych Appearance: grossly normal Mental Status: mental status grossly normal Speech and movement: Normal speech and movement present Affect: normal affect Attitude: cooperative Thought process: Normal thought process present Thought content: Normal thought content present Insight: Good insight present (Psych) Judgement: Good judgement present (Psych) Assessment and Plan Assessment & Plan (1) Aortic regurgitation: Code(s): I35.1 - Nonrheumatic aortic (valve) insufficiency Plan: Labs ordered (2) Mitral regurgitation: Code(s): I34.0 - Nonrheumatic mitral (valve) insufficiency Plan: Labs ordered (3) Anxiety with depression: Code(s): F41.8 - Other specified anxiety disorders Plan: Sending clonazepam, increasing fluoxetine from 40mg to 60mg, sending prazosin for sleep Plan The patient agreed to the use of a director of medical education for this encounter. Scribed for JOSE Wright by Angeline Ramirez, director of medical education, on 03/19/2024 at 13:15 EST. Orders: Orders Complete Blood Count Auto Diff Today I34.0 - Nonrheumatic mitral (valve) insufficiency, I35.1 - Nonrheumatic aortic (valve) insufficiency Comprehensive [place]. Panel Fast Today I34.0 - Nonrheumatic mitral (valve) insufficiency, I35.1 - Nonrheumatic aortic (valve) insufficiency TSH reflex Free T4 Today I34.0 - Nonrheumatic mitral (valve) insufficiency, I35.1 - Nonrheumatic aortic (valve) insufficiency UA CC w/rflx Micro + Cult Today I34.0 - Nonrheumatic mitral (valve) insufficiency, I35.1 - Nonrheumatic aortic (valve) insufficiency Lipid Panel Today I34.0 - Nonrheumatic mitral (valve) insufficiency, I35.1 - Nonrheumatic aortic (valve) insufficiency Medications: New clonazepam 0.5 mg PO DAILY 14 days PRN 14 tabs 0RF severe anxiety prazosin 1 mg PO BEDTIME 30 caps 2RF 30 days Changed From fluoxetine 40 mg PO DAILY 90 caps 0RF To fluoxetine 60 mg (3 x 20 mg) PO DAILY 90 caps 0RF Coding Level of Care Code Est Pt Level 3 (69507) Diagnoses Aortic regurgitation I35.1 Mitral regurgitation I34.0 Anxiety with depression F41.8
[2024-03-19 12:54] VITALS: BP 130/70; PULSE 84; O2SAT 98; BMI 34.8
== END 2024-03-19 13:35 | disposition home or self-care (01) ==
PROVIDERS: PCP Internal Medicine; Visit Provider Nurse Practitioner Family
DX: I35.1 Nonrheumatic aortic (valve) insufficiency (principal); I34.0 Nonrheumatic mitral (valve) insufficiency; F41.8 Other specified anxiety disorders
CPT/HCPCS: 99213

== ENCOUNTER 2024-07-14 11:46 | Outpatient (REF) | payer MEDICARE, SELFPAY ==
[2024-07-14 13:09] LABS: MANUAL DIFF FLAG NO
[2024-07-14 13:16] LABS: Basophils Absolute Auto 0.1 X10*3/uL (0.0-0.2); Basophils Percent Auto 1.1 % (0-2); Eosinophils Absolute Auto 0.7 X10*3/uL (0.0-0.4); Eosinophils Percent Auto 9.4 % (0-4); Hematocrit 37.1 % (37.0-47.0); Hemoglobin 12.7 g/dl (12.0-16.0); Imm Gran Abs Auto 0.01 X10*3/uL (0.00-0.03); Imm Gran Pct Auto 0.1 % (0.0-0.4); Lymphocytes Percent Auto 55.6 % (20-40); Mean Corpuscular HGB Conc 34.2 g/dl (31.0-35.0); Mean Corpuscular Volume 87.7 fL (80.0-98.0); Mean Platelet Volume 11.4 fL (9.4-12.3); Monocytes Absolute Auto 0.4 X10*3/uL (0.1-1.2); Neutrophils Percent Auto 27.8 % (45-73); Platelet Count 309 X10*3/uL (160-400); Red Blood Count 4.23 X10*6/uL (4.20-5.50); Red Cell Distribution Width 18.1 % (11.0-16.0); White Blood Count 7.2 X10*3/uL (4.8-10.8)
[2024-07-14 13:29] LABS: Appearance Urine Clear; Color Urine Yellow; Glucose Urine UA Negative (Negative); Leukocyte Esterase Urine Trace (Negative); Nitrite Urine Negative (Negative); Specific Gravity - Urine 1.015 (1.005-1.025); UMIC TRIGGER UACC YES; Urine Blood Negative (Negative); Urine Ketones Negative (Negative); Urine Protein Negative (Neg-Trace)
[2024-07-14 13:33] LABS: Alanine Aminotransferase 16 U/L (0-31); Alkaline Phosphatase 80 U/L (39-117); Anion Gap 13 (12-20); Aspartate Amino Transferase 22 U/L (5-31); Bilirubin Total 0.4 mg/dL (0.0-1.0); Blood Urea Nitrogen 15 mg/dL (9-16); Calcium 9.3 mg/dL (8.4-10.2); Carbon Dioxide 24 mmol/L (22-29); Chloride 107 mmol/L (96-108); Cholesterol 214 mg/dL (<200); Estimated Glomerular Filt Rate > 60; Glucose Fasting 103 mg/dL (60-99); HDL Cholesterol 65 mg/dL (>40); LDL Cholesterol Calculated 133 mg/dL (<100); Potassium 4.1 mmol/L (3.3-5.1); Sodium 140 mmol/L (135-145); Total Protein 6.9 g/dL (6.5-8.0); Triglycerides 84 mg/dL (<150)
[2024-07-14 13:41] LABS: TSH reflex Free T4 0.58 uIU/mL (0.32-4.0); WBC Urine 0-5 /HPF (0-5)
[2024-07-14 13:42] LABS: Bacteria Urine None Seen (None Seen); Hyaline Casts Urine 0-2 /LPF (0-2); RBC Urine 0-2 /HPF (0-2); Squamous Epithelial Cell Urine 0-2 /HPF (0-2)
== END 2024-07-14 11:47 | disposition home or self-care (01) ==
LOC: HO.HMGCLDS 11:46
PROVIDERS: PCP Nurse Practitioner Family; Visit Provider Nurse Practitioner Family
DX: I35.1 Nonrheumatic aortic (valve) insufficiency (principal); I34.0 Nonrheumatic mitral (valve) insufficiency
CPT/HCPCS: 36415; 80053; 80061; 81001; 84443; 85025

== ENCOUNTER 2024-07-15 11:24 | Outpatient (AMB) | payer MEDICARE, SELFPAY ==
[2024-07-15 11:27] VITALS: BP 120/70; PULSE 91; O2SAT 97; BMI 31.3
--- NOTE | 2024-07-15 11:27 | MHC.PC.OV ---
Vital Signs 07/15/24 11:27 Height 5 ft 0.5 in Weight 163 lb BMI 31.3 BP 120/70 Blood Pressure Location Rt brachial Position Sitting Pulse 91 Pulse Source Pulse Oximeter Pulse Oximetry (%) 97 Intake Visit Reasons: 4 Month follow up Intake Note: pt is here for 4 month follow up Manager Of Purchasing Required: No Accompanied by: Self / Same As Patient Allergies apples Allergy (Unknown, Uncoded 07/15/24 11:28) anaphylaxis TREE NUTS Allergy (Unknown, Uncoded 07/15/24 11:28) RASH tree nuts Allergy (Unknown, Uncoded 07/15/24 11:28) anaphylaxis Medication List - Last Reconciled 07/15/24 by JOSE Gordon cholecalciferol (vitamin D3) 50 mcg PO QWEEK 90 days clonazepam 0.5 mg PO DAILY PRN 14 days fluoxetine 20 mg PO DAILY fluoxetine 40 mg PO DAILY hydroxyzine HCl 50 mg PO QID PRN levothyroxine 100 mcg PO DAILY omeprazole 40 mg PO DAILY prazosin 1 mg PO BEDTIME rosuvastatin 40 mg PO DAILY Tobacco use date assessed: 12/03/23 Dental Screening Dental Screen Date: 12/03/23 HPI 4 Month follow up HPI Details Anxiety/depression: Pt is currently taking fluoxetine 60mg. She reports doing well overall and is in good spirits. Will refer to psychiatry for their input. Denies any SI and HI. Pt c/o increased fatigue. Will order labs. Pt's vitamin D has been low in the past. Will restart vitamin D and repeat labs this winter. [facility] Medical History Aortic regurgitation Idiopathic thrombocytopenic purpura (ITP) Hodgkins lymphoma Surgical History History of splenectomy Social History Housing: Condominium Patient Tobacco Use Status: Never used Tobacco e-Cigarette/Vaping Use: Never Used Second Hand Smoke Exposure: No service: No Current occupational status: disabled Cognitive needs: No Hearing needs: No Vision needs: No Questionnaire PHQ-9 Over the last 2 weeks, how often have you been bothered by any of the following problems? 1. Little interest or pleasure in doing things: several days 2. Feeling down, depressed, or hopeless: more than half the days 3. Trouble falling or staying asleep, or sleeping too much: more than half the days 4. Feeling tired or having little energy: more than half the days 5. Poor appetite or overeating: several days 6. Feeling bad about yourself - or that you are a failure or have let yourself or your family down: more than half the days 7. Trouble concentrating on things, such as reading the newspaper or watching television: several days 8. Moving or speaking so slowly that other people could have noticed. Or the opposite - being so fidgety or restless that you have been moving around a lot more than usual: not at all 9. Thoughts that you would be better off or of hurting yourself in some way: not at all Total score: 11 Depression Screening Interpretation: Positive Depression Screening Done: Yes 94384 - PHQ-9 Billing: Yes Source: Developed by Drs. Rolando Mendoza, Carol Michaels, Rashaad Thornton and colleagues, with an educational donita from [employer]. Thrive Questionnaire Date Thrive assessed: 07/15/24 I am a: Patient What is your living situation today?: I have a steady place to live Within the past 12 months, did the food you bought not last and you didn't have the money to get more?: Sometimes True Within the past 12 months, did you worry whether your food would run out before you got money to buy more?: Sometimes True Do you have trouble paying for medicines?: No Do you have trouble getting transportation to medical appointments?: No Do you have trouble paying your heating and electricity bill?: No Do you have trouble taking care of your child, family member or friend?: No Do you have trouble with day-to-day activities such as bathing, preparing meals, shopping, managing finances, etc.?: Yes Are you currently unemployed and looking for a job?: No Are you interested in more education?: Yes Please select the resources that you would like help with: None Currently or been in a relationship where the following occur: I choose not to answer THRIVE Score: 2 AUDIT C Alcohol Use Questionnaire (AUDIT-C) 1. How often do you have a drink containing alcohol?: Never 3. How often do you have six or more drinks on one occasion?: Never Total Score: 0 Score Reviewed/Action Taken: Yes DARREN-7 AMB Questionnaire DARREN-7 Date DARREN - 7 assessed: 07/15/24 Feeling nervous, anxious, or on edge: 2 = More than half the days Not being able to stop or control worryin = More than half the days Worrying too much about different things: 3 = Nearly every day Trouble relaxin = More than half the days Being so restless that it is hard to sit still: 1 = Several days Becoming easily annoyed or irritable: 1 = Several days Feeling afraid as if something awful might happen: 2 = More than half the days Total DARREN-7 score (0-4 normal; 5-9 mild; 10-14 moderate; 15-21 severe): 13 Source: Developed by Drs. Rolando Mendoza, Carol Michaels, Rashaad Thornton and colleagues, with an educational donita from [employer]. DARREN-7 Assessment Billing DARREN-7 Assessment Tool: DARREN-7 Assessment 35133 Review of Systems Const Reports as per HPI Physical exam (Primary Care) Vital Signs: Last Vital Signs Pulse 91 07/15/24 11:27 BP 120/70 07/15/24 11:27 Pulse Ox 97 07/15/24 11:27 BMI result Body Mass Index 31.3 Tobacco/Smoking Status: Tobacco use Status Tobacco use date assessed 12/03/23 07/15/24 11:29 Patient Tobacco Use Status Never used Tobacco 07/15/24 11:29 e-Cigarette/Vaping Use Never Used 07/15/24 11:29 PHQ-9: PHQ-9 Score PHQ-9: Total score 11 07/15/24 11:54 Depression Screening Interpretation: Positive Thrive Assessment: Date of Thrive Assessment Date Thrive assessed 07/15/24 07/15/24 11:29 Currently or been in a relationship where the following occur: I choose not to answer Const General: cooperative Orientation/consciousness: patient oriented x3 Resp Effort & Inspection: normal respiratory effort Auscultation: clear to auscultation bilaterally Cardio Rate: regular rate Rhythm: regular rhythm Heart sounds: S1 normal heart sound present, S2 normal heart sound present and Murmur heart sound present systolic Neuro General: patient oriented x3 Extrem Right lower extremity: no edema Left lower extremity: no edema Psych Appearance: grossly normal Mental Status: mental status grossly normal Speech and movement: Normal speech and movement present Affect: normal affect Attitude: cooperative Thought process: Normal thought process present Thought content: Normal thought content present Insight: Good insight present (Psych) Judgement: Good judgement present (Psych) Assessment and Plan Assessment & Plan (1) Anxiety with depression: Code(s): F41.8 - Other specified anxiety disorders Plan: Referred to psychiatry (2) Fatigue: Code(s): R53.83 - Other fatigue Plan: Labs ordered Plan The patient agreed to the use of a medical insurance coding specialist for this encounter. Scribed for KJ Wright- by Angeline Ramirez medical insurance coding specialist, on 07/15/2024 at 11:50 EST. Orders: Orders Complete Blood Count Auto Diff Today R53.83 - Other fatigue Comprehensive [place]. Panel Fast Today R53.83 - Other fatigue UA CC w/rflx Micro + Cult Today R53.83 - Other fatigue Lipid Panel Today R53.83 - Other fatigue Vitamin D 25-OH Total Today R53.83 - Other fatigue Ferritin Today R53.83 - Other fatigue Tick-borne Disease Molecular Today R53.83 - Other fatigue MARK Reflex Titer and Pattern Today R53.83 - Other fatigue Hemoglobin Electrophoresis Today R53.83 - Other fatigue TSH reflex Free T4 Today R53.83 - Other fatigue Vitamin B12 and Folate Today R53.83 - Other fatigue Lyme IgG/IgM w/reflex to WB Today R53.83 - Other fatigue Referrals Psychiatry Outpatient Consultation Service F41.8 - Other specified anxiety disorders Medications: New cholecalciferol (vitamin D3) 50 mcg PO QWEEK 90 days 13 caps 0RF Coding Level of Care Code Est Pt Level 3 (48148) Diagnoses Anxiety with depression F41.8 Fatigue R53.83 Additional Codes DARREN-7 Assessment Billing - DARREN-7 Assessment Tool: DARREN-7 Assessment 00085 ([id number])
== END 2024-07-15 12:09 | disposition home or self-care (01) ==
PROVIDERS: PCP Nurse Practitioner Family; Visit Provider Nurse Practitioner Family
DX: F41.8 Other specified anxiety disorders (principal); R53.83 Other fatigue
CPT/HCPCS: 96127; 99213

== ENCOUNTER 2024-08-18 10:09 | Outpatient (AMB) | payer MEDICARE, SELFPAY ==
--- NOTE | 2024-08-18 10:55 | A.OFFPSYCH_ITS ---
Intake Intake Visit Reasons: consult Group Captain Required: No Allergies apples Allergy (Unknown, Uncoded 07/15/24 11:28) anaphylaxis TREE NUTS Allergy (Unknown, Uncoded 07/15/24 11:28) RASH tree nuts Allergy (Unknown, Uncoded 07/15/24 11:28) anaphylaxis Medication List - Last Reconciled 08/18/24 by Pippa Jiménez APRN cholecalciferol (vitamin D3) 1,250 mcg PO QWEEK 90 days clonazepam 0.5 mg PO DAILY PRN 14 days fluoxetine 20 mg PO DAILY fluoxetine 40 mg PO DAILY hydroxyzine pamoate 50 mg PO QID PRN 90 days levothyroxine 100 mcg PO DAILY omeprazole 40 mg PO DAILY prazosin 1 mg PO BEDTIME rosuvastatin 40 mg PO DAILY HPI- Psychiatric Chief Complaint: consult HPI Narrative: Patient was referred by her primary care physician. She is taking medication for depression and anxiety. She has a long history of depression and anxiety she was treated by her primary care doctor until she retired she is currently taking Prozac 60 mg daily hydroxyzine 50 mg 3 times a day prazosin 1 mg at night for sleep clonazepam 0.5 mg as needed for anxiety she continues to be anxious depressed isolating she avoids going out of her house she ruminates she is not sleeping well she is frequently fatigued. In the past she saw a therapist at [facility] and then went to day treatment program which she found very helpful for a period of time. She has a history trauma and abandonment in her family growing up her mother was a very controlling person and did not treat her well her father was absent. She has been unable to work for the past 10 years due to depression anxiety panic attacks. She has been tried on several medications including Celexa Paxil Seroquel. She was also treated for ADHD with good success taking Ritalin IR several times a day while she was working she has not been on Ritalin for some time. Past Psychiatric History: Outpatient counseling and day treatment in the past no inpatient level of care Subjective Subjective Subjective Medication Compliance: Yes Side effects from medications: No Review of Systems Medical Review of Systems: unchanged Mental Status Exam Mental Status Exam Patient Appearance: Well Grooomed Patient Orientation: Person, Place, Time and Situation Level of Consciousness: Awake Patient Behavior: Appropriate Mood Description: Depressed and Anxious Affect Description: Depressed and Anxious Patient Cognition Impaired: No Ability to Follow Directions: Good Speech Pattern: Clear Memory Description: Intact Hallucinations: None Delusions: Not Present Thought Process: Intact Thought Content: positive for Intact Judgement: Good Assessment and Plan Assessment & Plan (1) Major depressive disorder, recurrent, moderate: Status: Acute Code(s): F33.1 - Major depressive disorder, recurrent, moderate (2) Generalized anxiety disorder with panic attacks: Status: Acute Code(s): F41.1 - Generalized anxiety disorder; F41.0 - Panic disorder [episodic paroxysmal anxiety] Plan Add Cymbalta 20 mg daily Taper the Prozac (she had already decreased herself to 40 mg from 60. Because she felt it was not working) Increase prazosin to 2 mg at bedtime Renew clonazepam and ask for TEVA brand as she has done better on Teva than any other generic. Medications: New duloxetine (Cymbalta) 20 mg PO DAILY 30 caps 1RF Changed From clonazepam 0.5 mg PO DAILY 14 days PRN 14 tabs 0RF severe anxiety To clonazepam TEVA BRAND 0.5 mg PO DAILY PRN 30 tabs 0RF severe anxiety 30 days From prazosin 1 mg PO BEDTIME 90 caps 1RF To prazosin 2 mg (2 x 1 mg) PO BEDTIME 180 caps 1RF Discontinued fluoxetine Take with 20mg cap daily for 60mg daily dose Discontinued Reason: Doctor's Order 40 mg PO DAILY 90 caps 1RF Counseling and coordination of Care Pt. Self Management counseling: Maintenance-social rhythm, Mod caffeine/ETOH intake, Sleep hygiene, Behavior activation, General coping skills and Problem solving Medication management counseling: Effectiveness, Side effects, Dosing range, Duration, Drug interaction and Adherence Diagnosis and Prognosis Counseling: Accuracy of diagnosis, Prognosis over time, Impact of diagnosis on life functions, Impact of family relationship, Problematic behaviors secondary to diagnosis and Adequacy of current interventions Details: I spent 75 minutes reviewing the record, seeing the patient and documenting in the medical record. Counseling provided to the patient/caregiver as outlined below. Addressed patient/caregiver concerns regarding current medication regime including effective adherence. Addressed patient/caregiver concerns regarding diagnosis and prognosis including accuracy of diagnosis, prognosis over time, impact of diagnosis. Addressed patient/caregiver concerns regarding impact of recent stressors. [facility] Medical History Aortic regurgitation Idiopathic thrombocytopenic purpura (ITP) Hodgkins lymphoma Surgical History History of splenectomy Social History Housing: Condominium Patient Tobacco Use Status: Never used Tobacco e-Cigarette/Vaping Use: Never Used Second Hand Smoke Exposure: No service: No Current occupational status: disabled Cognitive needs: No Hearing needs: No Vision needs: No Social History: Patient grew up in [place] she live with her mother her parents were for 24 years she was an only child her father left family when she was quite young and started a new family she does have a half-brother and half- sister that she has no relationship with she attended school in [place] and did well until her isabell year when she was diagnosed with Hodgkin's disease and was in and out of school for the entire year she went back to school in her senior year she did graduate but she felt estranged from her peers 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 She became disabled after taking care of her mother who got sick in the same year she was it triggered a severe depression and she has been able to work since then Substance History: None Trauma History: Yes childhood Coding Level of Care Code Psych Diag Eval w/Med (84725) Diagnoses Major depressive disorder, recurrent, moderate F33.1 Generalized anxiety disorder with panic attacks F41.1; F41.0
== END 2024-08-18 11:21 | disposition home or self-care (01) ==
LOC: HO.HOP 10:09
PROVIDERS: PCP Nurse Practitioner Family; Visit Provider Clinical Nurse Specialist Psychiatric/Mental Health
DX: F33.1 Major depressive disorder, recurrent, moderate (principal); F41.1 Generalized anxiety disorder; F41.0 Panic disorder [episodic paroxysmal anxiety]
CPT/HCPCS: 90792

== ENCOUNTER → 2024-08-18 10:09 | Outpatient (BNVA) | payer MEDICARE, SELFPAY | PROVIDERS: PCP Nurse Practitioner Family; Visit Provider Clinical Nurse Specialist Psychiatric/Mental Health | DX: F33.1 Major depressive disorder, recurrent, moderate (principal); F41.1 Generalized anxiety disorder; F41.0 Panic disorder [episodic paroxysmal anxiety] | CPT/HCPCS: 90792 ==

== ENCOUNTER 2024-08-19 08:27 | Outpatient (REF) | payer MEDICARE, SELFPAY ==
[2024-08-20 03:55] LABS: CT PCR NOT DETECTED (Not Detect.); NG PCR NOT DETECTED (Not Detect.)
[2024-08-20 11:30] LABS: Bacterial Vaginosis PCR NEGATIVE (Negative); Candida Group PCR NOT DETECTED (Not Detect); Candida glab krusei PCR NOT DETECTED (Not Detect); Trichomonas vaginalis PCR NOT DETECTED (Not Detect)
== END 2024-08-19 08:28 | disposition home or self-care (01) ==
LOC: HO.LAB 08:27
PROVIDERS: PCP Nurse Practitioner Family; Visit Provider Advanced Practice Midwife
DX: Z13.89 Encounter for screening for other disorder (principal)
CPT/HCPCS: 0352U; 87491; 87591; 99386

== ENCOUNTER 2024-08-19 08:27 | Outpatient (AMB) | payer MEDICARE, SELFPAY ==
--- NOTE | 2024-08-19 08:46 | A.OFFVIS_ITS ---
Vital Signs 08/19/24 08:51 Height 5 ft 0.5 in Weight 162 lb BMI 31.1 BP 92/62 Intake Visit Reasons: New patient Annual Wire Charger: Wire Charger Present (Annika) Allergies apples Allergy (Unknown, Uncoded 08/19/24 08:48) anaphylaxis TREE NUTS Allergy (Unknown, Uncoded 08/19/24 08:48) RASH tree nuts Allergy (Unknown, Uncoded 08/19/24 08:48) anaphylaxis [facility] Medical History Aortic regurgitation Idiopathic thrombocytopenic purpura (ITP) Hodgkins lymphoma Surgical History History of splenectomy Family History (Updated 08/19/24 @ 08:51 by ADOLFO Flores) Maternal Aunt Ovarian cancer Family/Other History of breast cancer Social History Housing: Condominium Patient Tobacco Use Status: Never used Tobacco e-Cigarette/Vaping Use: Never Used Second Hand Smoke Exposure: No service: No Current occupational status: disabled Cognitive needs: No Hearing needs: No Vision needs: No Female Reproductive History Menstrual Age of menopause: 48 Total pregnancies: 0 Coding
--- NOTE | 2024-08-19 08:46 | A.OFFVIS_ITS ---
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 She is doing well with no concerns. Admits to urinary leakage and urgency at times, and feels her core is very weak. Attempting to eat a healthy diet with calcium and vitamin D supplement weekly. No regular exercise. Currently not sexually active. Denies any vaginal dryness or irritation. STI testing offered; she accepts. Last pap smear; 2015. Last mammogram; 2023. Colonoscopy is UTD. Denies any family history of colon cancer. FH breast and ovarian cancer. [facility] Medical History Aortic regurgitation Idiopathic thrombocytopenic purpura (ITP) Hodgkins lymphoma Surgical History History of splenectomy Family History (Updated 08/19/24 @ 08:51 by ADOLFO Flores) Maternal Aunt Ovarian cancer Family/Other History of breast cancer Social History Housing: Condominium Patient Tobacco Use Status: Never used Tobacco e-Cigarette/Vaping Use: Never Used Second Hand Smoke Exposure: No service: No Current occupational status: disabled Cognitive needs: No Hearing needs: No Vision needs: No Female Reproductive History Menstrual Date of last pap smear: 03/15/16 (neg) Date of Mammogram: 12/12/23 (Birad 1) Date of last Bone Density Screenin02/14/21 Review of Systems Const All systems reviewed & are unremarkable except as noted in HPI and below Reports as per HPI Eyes Reports no additional complaints ENT Reports no additional complaints Card Reports no additional complaints Resp Reports no additional complaints GI Reports as per HPI and Reports no additional complaints Reports as per HPI Musc Reports no additional complaints Skin/Breast Reports as per HPI Neuro Reports no additional complaints Psych Reports no additional complaints Endo Reports no additional complaints Caleb/Lymph Reports no additional complaints Aller/Immun Reports no additional complaints Physical Exam Vital Signs: Last Vital Signs BP 92/62 08/19/24 08:51 BMI result Body Mass Index 31.1 Const General: cooperative, healthy appearing, no acute distress, well developed and alert Orientation/consciousness: patient oriented x3 HEENT Head: Yes normal to inspection Eyes General: appearance normal, both eyes and all related structures Neck Neck: Yes normal visual inspection Thyroid: Thyroid normal Chest Chest palpation & inspection: normal inspection of the chest and other (no puckering, dimpling, peau de orange, retraction, discharge, masses) Breast/axilla inspection: normal inspection of the breasts Breast/axilla palpation: normal palpation of the breasts Resp Effort & Inspection: normal respiratory effort GI Inspection: Yes normal to inspection Palpation (GI): Soft to palpation Rectal Exam - Female: deferred General: Yes bladder normal to palpation External Female Exam: normal external appearance and normal appearance of the urethra Speculum Exam - Vagina: normal appearance of the vagina, normal palpation, normal vaginal discharge and vagina atrophic (Moderate) Speculum Exam - Cervix: normal appearance of the cervix and normal palpation Bimanual exam- vagina & uterus: normal bimanual exam, normal palpation, uterine size normal, bladder normal to palpation, normal palpation and non-tender Bimanual Exam- Adnexa, other: no masses Skin General skin exam: no rashes or lesions noted Rashes: no rashes Neuro General: patient oriented x3 Cognition (Neuro): normal cognition Extrem General: Yes normal to inspection Psych Attitude: cooperative Thought process: Normal thought process present Assessment & Plan Assessment & Plan (1) Encounter for well woman exam with routine gynecological exam: Code(s): Z01.419 - Encounter for gynecological examination (general) (routine) without abnormal findings Category: Medical Plan Discussed: Current recommendations for pap smears per ASCCP guidelines. Pap obtained, GC chlamydia and BV panel completed STD screening blood work ordered. Breast awareness, periodic self breast exams and yearly mammogram. Maintain a healthy lifestyle, well balanced diet including Calcium 1,200 mg and Vitamin D 600 IU daily, and routine exercise. Vaginal atrophy, natural aging changes. Pelvic floor training, consider urology referral if no improvement with PT-wants to think about both options and will let me know if she decides to up for either. Contact the office with any postmenopausal bleeding. Patient verbalizes understanding and agrees to the plan of care. She was given opportunity to ask questions and all questions were answered to the best of my ability. 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 This note is constructed using voice recognition software. While every effort has been made to ensure accuracy, imaging tech errors may have been included. Orders: Orders Hepatitis B Core Antibody Today Z20.2 - Contact with and (suspected) exposure to infections with a predominantly sexual mode of transmission Syphilis Screen Today Z20.2 - Contact with and (suspected) exposure to infections with a predominantly sexual mode of transmission Bacterial Vaginosis Panel Today Z20.2 - Contact with and (suspected) exposure to infections with a predominantly sexual mode of transmission CT NG by PCR Today Z20.2 - Contact with and (suspected) exposure to infections with a predominantly sexual mode of transmission PAP + HPV E6/E7 rfx 18/45 Today Z01.419 - Encounter for gynecological examination (general) (routine) without abnormal findings HIV Ab/Ag Today Z20.2 - Contact with and (suspected) exposure to infections with a predominantly sexual mode of transmission Hepatitis C Antibody Reflex Today Z20.2 - Contact with and (suspected) exposure to infections with a predominantly sexual mode of transmission Coding Level of Care Code New Pt Prev Care 40-64y(02767) Diagnoses Encounter for well woman exam with routine gynecological exam Z01.419
[2024-08-19 08:51] VITALS: BP 92/62; BMI 31.1
== END 2024-08-19 09:34 | disposition home or self-care (01) ==
PROVIDERS: PCP Nurse Practitioner Family; Visit Provider Advanced Practice Midwife
DX: Z01.419 Encounter for gynecological examination (general) (routine) without abnormal findings (principal)
CPT/HCPCS: 99386

== ENCOUNTER 2024-08-19 09:20 | Outpatient (REF) | payer MEDICARE, SELFPAY ==
[2024-08-21 11:13] LABS: HPV mRNA E6/E7 Not Detected (Not Detected)
== END 2024-08-19 09:21 | disposition home or self-care (01) ==
LOC: HO.LNP 09:20
PROVIDERS: Visit Provider Advanced Practice Midwife
DX: Z01.419 Encounter for gynecological examination (general) (routine) without abnormal findings (principal); Z20.2 Contact with and (suspected) exposure to infections with a predominantly sexual mode of transmission
CPT/HCPCS: 0352U; 87491; 87591; 87624; 88175; 99386

== ENCOUNTER 2024-09-22 12:43 | Outpatient (AMB) | payer MEDICARE, SELFPAY ==
--- NOTE | 2024-09-22 13:28 | A.OFFPSYCH_ITS ---
Intake Intake Visit Reasons: follow up Real Estate Underwriter Required: No Allergies apples Allergy (Unknown, Uncoded 08/19/24 08:48) anaphylaxis TREE NUTS Allergy (Unknown, Uncoded 08/19/24 08:48) RASH tree nuts Allergy (Unknown, Uncoded 08/19/24 08:48) anaphylaxis Medication List - Last Reconciled 09/22/24 by Pippa Jiménez APRN cholecalciferol (vitamin D3) 1,250 mcg PO QWEEK 90 days clonazepam 0.5 mg PO DAILY PRN 30 days duloxetine (Cymbalta) 20 mg PO DAILY fluoxetine 20 mg PO DAILY hydroxyzine pamoate 50 mg PO QID PRN 90 days levothyroxine 100 mcg PO DAILY omeprazole 40 mg PO DAILY prazosin 2 mg (2 x 1 mg) PO BEDTIME rosuvastatin 40 mg PO DAILY HPI- Psychiatric Chief Complaint: follow up HPI Narrative: pt continues to havve depression, anxiety, insomnia; no change with medication changes; pt wants to stop prazosin as its not helping and its causing nasal congestion and headache. pt does not think hse has any side effects from cymbalta. PHQ9= 15 and GAD7 = 12. No SI or HI Past Psychiatric History: Outpatient counseling and day treatment in the past no inpatient level of care Subjective Subjective Subjective Medication Compliance: Yes Side effects from medications: No Review of Systems Medical Review of Systems: unchanged Mental Status Exam Mental Status Exam Patient Appearance: Well Grooomed Patient Orientation: Person, Place, Time and Situation Level of Consciousness: Awake and Appropriate Patient Behavior: Appropriate Mood Description: Anxious Affect Description: Anxious Patient Cognition Impaired: No Ability to Follow Directions: Good Speech Pattern: Appropriate Memory Description: Intact Hallucinations: None Delusions: Not Present Thought Process: Intact and Rumination Thought Content: positive for Intact, positive for Preoccupation and positive for Loose Associations Judgement: Good Assessment and Plan Assessment & Plan (1) Generalized anxiety disorder with panic attacks: Status: Acute Code(s): F41.1 - Generalized anxiety disorder; F41.0 - Panic disorder [episodic paroxysmal anxiety] (2) Major depressive disorder, recurrent, moderate: Status: Acute Code(s): F33.1 - Major depressive disorder, recurrent, moderate Plan stop prazosin stop prozac increase cymbalta to 30mg daily x 14 days then increase to 60mg daily start ambien 5 mg at bedtime clonazepam 0.5mg qd prn anxiety at least 3 hours before ambien Medications: New duloxetine (Cymbalta) 30 mg PO DAILY 90 caps 0RF zolpidem (Ambien) 5 mg PO BEDTIME PRN 30 tabs 1RF sleep Refilled clonazepam TEVA BRAND 0.5 mg PO DAILY PRN 30 tabs 0RF severe anxiety 30 days Discontinued fluoxetine Take with 40mg cap daily for 60mg daily dose Discontinued Reason: Doctor's Order 20 mg PO DAILY 90 caps 1RF prazosin Discontinued Reason: Doctor's Order 2 mg (2 x 1 mg) PO BEDTIME 180 caps 1RF duloxetine (Cymbalta) Discontinued Reason: Doctor's Order 20 mg PO DAILY 30 caps 1RF Counseling and coordination of Care Pt. Self Management counseling: Maintenance-social rhythm, Mod caffeine/ETOH intake, Sleep hygiene, Behavior activation, General coping skills and Problem solving Medication management counseling: Effectiveness, Side effects, Dosing range, Duration, Drug interaction and Adherence Diagnosis and Prognosis Counseling: Accuracy of diagnosis, Prognosis over time, Impact of diagnosis on life functions, Impact of family relationship, Problematic behaviors secondary to diagnosis and Adequacy of current interventions Details: I spent 40 minutes reviewing the record, seeing the patient and documenting in the medical record. Counseling provided to the patient/caregiver as outlined below. Addressed patient/caregiver concerns regarding current medication regime including effective adherence. Addressed patient/caregiver concerns regarding diagnosis and prognosis including accuracy of diagnosis, prognosis over time, impact of diagnosis. Addressed patient/caregiver concerns regarding impact of recent stressors. [facility] Medical History Aortic regurgitation Idiopathic thrombocytopenic purpura (ITP) Hodgkins lymphoma Surgical History History of splenectomy Family History (Updated 08/19/24 @ 08:51 by ADOLFO Flores) Maternal Aunt Ovarian cancer Family/Other History of breast cancer Social History Housing: Condominium Patient Tobacco Use Status: Never used Tobacco e-Cigarette/Vaping Use: Never Used Second Hand Smoke Exposure: No service: No Current occupational status: disabled Cognitive needs: No Hearing needs: No Vision needs: No Social History: Patient grew up in [place] she live with her mother her parents were for 24 years she was an only child her father left family when she was quite young and started a new family she does have a half-brother and half- sister that she has no relationship with she attended school in [place] and did well until her isabell year when she was diagnosed with Hodgkin's disease and was in and out of school for the entire year she went back to school in her senior year she did graduate but she felt estranged from her peers 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 She became disabled after taking care of her mother who got sick in the same year she was it triggered a severe depression and she has been able to work since then Substance History: None Trauma History: Yes childhood Coding Level of Care Code Est Pt Level 4 (64835) Diagnoses Generalized anxiety disorder with panic attacks F41.1; F41.0 Major depressive disorder, recurrent, moderate F33.1
== END 2024-09-22 14:02 | disposition home or self-care (01) ==
LOC: HO.HOP 12:44
PROVIDERS: PCP Nurse Practitioner Family; Visit Provider Clinical Nurse Specialist Psychiatric/Mental Health
DX: F41.1 Generalized anxiety disorder (principal); F41.0 Panic disorder [episodic paroxysmal anxiety]; F33.1 Major depressive disorder, recurrent, moderate
CPT/HCPCS: 99214

== ENCOUNTER → 2024-09-22 12:43 | Outpatient (BNVA) | payer MEDICARE, SELFPAY | PROVIDERS: PCP Nurse Practitioner Family; Visit Provider Clinical Nurse Specialist Psychiatric/Mental Health | DX: F41.1 Generalized anxiety disorder (principal); F41.0 Panic disorder [episodic paroxysmal anxiety]; F33.1 Major depressive disorder, recurrent, moderate | CPT/HCPCS: 99212 ==

== ENCOUNTER 2024-10-20 13:07 | Outpatient (AMB) | payer MEDICARE, SELFPAY ==
--- NOTE | 2024-10-20 13:12 | A.OFFPSYCH_ITS ---
Intake Intake Visit Reasons: follow up Research Manager Required: No Allergies apples Allergy (Unknown, Uncoded 08/19/24 08:48) anaphylaxis TREE NUTS Allergy (Unknown, Uncoded 08/19/24 08:48) RASH tree nuts Allergy (Unknown, Uncoded 08/19/24 08:48) anaphylaxis Medication List - Last Reconciled 10/20/24 by Pippa Jiménez APRN cholecalciferol (vitamin D3) 1,250 mcg PO QWEEK 90 days clonazepam 0.5 mg PO DAILY PRN 30 days duloxetine (Cymbalta) 30 mg PO DAILY hydroxyzine pamoate 50 mg PO QID PRN 90 days levothyroxine 100 mcg PO DAILY omeprazole 40 mg PO DAILY rosuvastatin 40 mg PO DAILY zolpidem (Ambien) 5 mg PO BEDTIME PRN HPI- Psychiatric Chief Complaint: follow up HPI Narrative: Pt reports some improvement in mood; tolerating the cymbalta without side effects; still not sleeping well. She has used ambien in the past with good effect and only used it prn. she had no side effects in past such as sleep walking or eating. she wants to restart ritalin which she was on in past also; she took ritalin when she worked and was able to be very organized and stay on taks. she feels overwhelmed at home with clutter and not being able to find important paperwork. she feels dismayed by not being able to get her belongings in order and also by extension is behind on paying taxes, and other bills. This increases her anxiety and depression. Her PHQ9= 12 ans her GAD7 = 10 . She denies SI or Hi Past Psychiatric History: Outpatient counseling and day treatment in the past no inpatient level of care Subjective Subjective Subjective Medication Compliance: Yes Side effects from medications: No Review of Systems Medical Review of Systems: unchanged Review of Systems Review of Systems Yes all other systems are reviewed and are negative Mental Status Exam Mental Status Exam Patient Appearance: Well Grooomed and Appropriate Patient Orientation: Person, Place, Time and Situation Level of Consciousness: Awake, Appropriate and Alert Patient Behavior: Appropriate, Talkative, Restless and Anxious Mood Description: Anxious, Sad and Nervous Affect Description: Anxious, Sad and Nervous Patient Cognition Impaired: No Ability to Follow Directions: Good Speech Pattern: Clear, Excessive and Pressured Memory Description: Intact Hallucinations: None Delusions: Not Present Thought Process: Intact Thought Content: positive for Intact, positive for Loose Associations and positive for Tangential Judgement: Good Assessment and Plan Assessment & Plan (1) ADHD: Status: Acute Code(s): F90.9 - Attention-deficit hyperactivity disorder, unspecified type (2) Generalized anxiety disorder with panic attacks: Status: Acute Code(s): F41.1 - Generalized anxiety disorder; F41.0 - Panic disorder [episodic paroxysmal anxiety] (3) Major depressive disorder, recurrent, moderate: Status: Acute Code(s): F33.1 - Major depressive disorder, recurrent, moderate Medications: New methylphenidate HCl (Ritalin) Partial Fill upon patient request. 10 mg PO BID 60 tabs 0RF zolpidem 10 mg PO BEDTIME PRN 30 tabs 1RF sleep Refilled clonazepam TEVA BRAND 0.5 mg PO DAILY PRN 30 tabs 0RF severe anxiety 30 days Discontinued zolpidem Discontinued Reason: Doctor's Order 5 mg PO BEDTIME PRN 30 tabs 1RF sleep Orders: Orders ECG 12 lead EKG 10/20/24 F90.9 - Attention-deficit hyperactivity disorder, unspecified type, R01.1 - Cardiac murmur, unspecified Counseling and coordination of Care Pt. Self Management counseling: Maintenance-social rhythm, Mod caffeine/ETOH intake, Sleep hygiene, Behavior activation and General coping skills Medication management counseling: Effectiveness, Side effects, Dosing range, Duration, Drug interaction and Adherence Diagnosis and Prognosis Counseling: Accuracy of diagnosis, Prognosis over time, Impact of diagnosis on life functions, Impact of family relationship, Problematic behaviors secondary to diagnosis and Adequacy of current interventions Details: I spent 45 minutes reviewing the record, seeing the patient and documenting in the medical record. Counseling provided to the patient/caregiver as outlined below. Addressed patient/caregiver concerns regarding current medication regime including effective adherence. Addressed patient/caregiver concerns regarding diagnosis and prognosis including accuracy of diagnosis, prognosis over time, impact of diagnosis. Addressed patient/caregiver concerns regarding impact of recent stressors. [facility] Medical History Aortic regurgitation Idiopathic thrombocytopenic purpura (ITP) Hodgkins lymphoma Surgical History History of splenectomy Family History (Updated 08/19/24 @ 08:51 by ADOLFO Flores) Maternal Aunt Ovarian cancer Family/Other History of breast cancer Social History Housing: Condominium Patient Tobacco Use Status: Never used Tobacco e-Cigarette/Vaping Use: Never Used Second Hand Smoke Exposure: No service: No Current occupational status: disabled Cognitive needs: No Hearing needs: No Vision needs: No Social History: Patient grew up in [place] she live with her mother her parents were for 24 years she was an only child her father left family when she was quite young and started a new family she does have a half-brother and half- sister that she has no relationship with she attended school in [place] and did well until her isabell year when she was diagnosed with Hodgkin's disease and was in and out of school for the entire year she went back to school in her senior year she did graduate but she felt estranged from her peers 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 She became disabled after taking care of her mother who got sick in the same year she was it triggered a severe depression and she has been able to work since then Substance History: None Trauma History: Yes childhood Coding Level of Care Code Est Pt Level 5 (17311) Diagnoses ADHD F90.9 Generalized anxiety disorder with panic attacks F41.1; F41.0 Major depressive disorder, recurrent, moderate F33.1
== END 2024-10-20 14:16 | disposition home or self-care (01) ==
LOC: HO.HOP 13:07
PROVIDERS: PCP Nurse Practitioner Family; Visit Provider Clinical Nurse Specialist Psychiatric/Mental Health
DX: F90.9 Attention-deficit hyperactivity disorder, unspecified type (principal); F41.1 Generalized anxiety disorder; F41.0 Panic disorder [episodic paroxysmal anxiety]; F33.1 Major depressive disorder, recurrent, moderate
CPT/HCPCS: 99215

== ENCOUNTER → 2024-10-20 13:07 | Outpatient (REF) | payer MEDICARE, SELFPAY ==
--- NOTE | 2024-10-20 13:55 | ECG_ITS ---
Test Reason : murmur Blood Pressure : / mmHG Vent. Rate : 098 BPM Atrial Rate : 098 BPM P-R Int : 156 ms QRS Dur : 066 ms QT Int : 368 ms P-R-T Axes : 051 -03 048 degrees QTc Int : 469 ms Normal sinus rhythm Normal ECG No previous ECGs available Referred By: Pippa Jiménez Electronically Signed By:AMY LONG
== END ==
LOC: HO.CARD 13:07
PROVIDERS: PCP Nurse Practitioner Family; Visit Provider Clinical Nurse Specialist Psychiatric/Mental Health
DX: R01.1 Cardiac murmur, unspecified (principal); F90.9 Attention-deficit hyperactivity disorder, unspecified type
CPT/HCPCS: 93005

== ENCOUNTER → 2024-10-20 13:55 | Outpatient (BNV) | payer MEDICARE, SELFPAY | PROVIDERS: PCP Nurse Practitioner Family; Visit Provider Internal Medicine | DX: R01.1 Cardiac murmur, unspecified (principal) | CPT/HCPCS: 93010 ==

== ENCOUNTER 2024-11-17 12:18 | Outpatient (AMB) | payer MEDICARE, SELFPAY ==
--- NOTE | 2024-11-17 11:39 | MHC.OFFVISPS ---
Intake Intake Visit Reasons: consultation Musical Engineer Required: No Allergies apples Allergy (Unknown, Uncoded 08/19/24 08:48) anaphylaxis TREE NUTS Allergy (Unknown, Uncoded 08/19/24 08:48) RASH tree nuts Allergy (Unknown, Uncoded 08/19/24 08:48) anaphylaxis Medication List - Last Reconciled 11/17/24 by Pippa Jiménez APRN cholecalciferol (vitamin D3) 1,250 mcg PO QWEEK 90 days clonazepam 0.5 mg PO DAILY PRN 30 days duloxetine (Cymbalta) 30 mg PO DAILY hydroxyzine pamoate 50 mg PO QID PRN 90 days levothyroxine 100 mcg PO DAILY methylphenidate HCl (Ritalin) 10 mg PO BID omeprazole 40 mg PO DAILY rosuvastatin 40 mg PO DAILY zolpidem 10 mg PO BEDTIME PRN HPI- Psychiatric Chief Complaint: consultation HPI Narrative: pt seen in telehealth session today as she is not feeling well; she feels that she may be sick; she has appt with PCP coming up next week and has blood work ordered; she is worried that lymphoma may be back. She feels that the psych meds are helping her mood and reducing her worry; she has taken the ritalin but not when she is resting; she feels it helps a little ; she would like to increase it and agrees to wait until she sees PCP and gets blood work done before starting it. she denies SI ro Hi. EKG done 10/20/24 normal sinus normal EKG. Past Psychiatric History: Outpatient counseling and day treatment in the past no inpatient level of care Subjective Subjective Subjective Medication Compliance: Yes Side effects from medications: No Review of Systems Medical Review of Systems: unchanged Mental Status Exam Mental Status Exam Patient Appearance: Appropriate Patient Orientation: Person, Place, Time and Situation Level of Consciousness: Awake and Appropriate Patient Behavior: Appropriate and Talkative Mood Description: Sad Affect Description: Sad Patient Cognition Impaired: No Ability to Follow Directions: Good Speech Pattern: Clear and Appropriate Memory Description: Intact Hallucinations: None Delusions: Not Present Thought Process: Intact and Goal Oriented Thought Content: positive for Intact and positive for Goal Oriented Judgement: Good Telehealth Telehealth Telehealth Platform: Other (please specify) ([email or web address]) Location of provider rendering services: practice address Location of patient: address on file Patient Identification confirmed using: Name, : Yes Telehealth method: video Patient verbally consented to treatment: Yes Patient verbally consented to billing insurance company: Yes Patient informed of any privacy concerns related to visit: Yes Minutes spent on Phone/Video with Pt.: 30 Assessment and Plan Assessment & Plan (1) ADHD: Status: Acute Qualifiers: Attention 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 Qualified Code(s): F90.0 - Attention-deficit hyperactivity disorder, predominantly inattentive type Code(s): F90.9 - Attention-deficit hyperactivity disorder, unspecified type (2) Generalized anxiety disorder with panic attacks: Status: Acute Code(s): F41.1 - Generalized anxiety disorder; F41.0 - Panic disorder [episodic paroxysmal anxiety] (3) Major depressive disorder, recurrent, moderate: Status: Acute Code(s): F33.1 - Major depressive disorder, recurrent, moderate Plan meds per below continue clonazepam 0.5mg qd prn severe anxiety only hydroxyzine 25-50 mg bid orn ambien 10 mg at bedtime prn insomnia Medications: New methylphenidate HCl (Ritalin) Partial Fill upon patient request. 20 mg PO BID 60 tabs 0RF Changed From duloxetine (Cymbalta) 30 mg PO DAILY 90 caps 0RF To duloxetine (Cymbalta) 30 mg PO BID 180 caps 0RF Discontinued methylphenidate HCl (Ritalin) Partial Fill upon patient request. Discontinued Reason: No Longer Medically Relevant 10 mg PO BID 60 tabs 0RF Counseling and coordination of Care Pt. Self Management counseling: Maintenance-social rhythm, Med illness tx adherence, Mod caffeine/ETOH intake, Nutrition education and improvement, Sleep hygiene, General coping skills and Problem solving Medication management counseling: Effectiveness, Side effects, Dosing range, Duration, Drug interaction and Adherence Diagnosis and Prognosis Counseling: Accuracy of diagnosis, Prognosis over time, Impact of diagnosis on life functions, Impact of family relationship, Problematic behaviors secondary to diagnosis and Adequacy of current interventions Details: I spent 40 minutes reviewing the record, seeing the patient and documenting in the medical record. Counseling provided to the patient/caregiver as outlined below. Addressed patient/caregiver concerns regarding current medication regime including effective adherence. Addressed patient/caregiver concerns regarding diagnosis and prognosis including accuracy of diagnosis, prognosis over time, impact of diagnosis. Addressed patient/caregiver concerns regarding impact of recent stressors. [facility] Medical History Aortic regurgitation Idiopathic thrombocytopenic purpura (ITP) Hodgkins lymphoma Surgical History History of splenectomy Family History (Updated 08/19/24 @ 08:51 by ADOLFO Flores) Maternal Aunt Ovarian cancer Family/Other History of breast cancer Social History Housing: Condominium Patient Tobacco Use Status: Never used Tobacco e-Cigarette/Vaping Use: Never Used Second Hand Smoke Exposure: No service: No Current occupational status: disabled Cognitive needs: No Hearing needs: No Vision needs: No Social History: Patient grew up in [place] she live with her mother her parents were for 24 years she was an only child her father left family when she was quite young and started a new family she does have a half-brother and half-sister that she has no relationship with she attended school in [place] and did well until her isabell year when she was diagnosed with Hodgkin's disease and was in and out of school for the entire year she went back to school in her senior year she did graduate but she felt estranged from her peers 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 She became disabled after taking care of her mother who got sick in the same year she was it triggered a severe depression and she has been able to work since then Substance History: None Trauma History: Yes childhood Coding Level of Care Code Tele Est Pt Level 4 (32546) Diagnoses Attention deficit hyperactivity disorder (ADHD), predominantly inattentive type F90.0 Attention 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 Generalized anxiety disorder with panic attacks F41.1; F41.0 Major depressive disorder, recurrent, moderate F33.1
== END 2024-11-17 12:18 | disposition home or self-care (01) ==
LOC: HO.HOP 12:18
PROVIDERS: PCP Nurse Practitioner Family; Visit Provider Clinical Nurse Specialist Psychiatric/Mental Health
DX: F90.0 Attention-deficit hyperactivity disorder, predominantly inattentive type (principal); F41.1 Generalized anxiety disorder; F41.0 Panic disorder [episodic paroxysmal anxiety]; F33.1 Major depressive disorder, recurrent, moderate
CPT/HCPCS: 99214

== ENCOUNTER → 2024-11-17 12:18 | Outpatient (BNVA) | payer MEDICARE, SELFPAY | PROVIDERS: PCP Nurse Practitioner Family; Visit Provider Clinical Nurse Specialist Psychiatric/Mental Health ==

== ENCOUNTER 2024-11-30 10:23 | Outpatient (REF) | payer MEDICARE, SELFPAY ==
[2024-11-30 13:14] LABS: MANUAL DIFF FLAG NO
[2024-11-30 13:23] LABS: Basophils Absolute Auto 0.1 X10*3/uL (0.0-0.2); Basophils Percent Auto 1.1 % (0-2); Eosinophils Absolute Auto 0.5 X10*3/uL (0.0-0.4); Eosinophils Percent Auto 5.6 % (0-4); Hematocrit 39.2 % (37.0-47.0); Imm Gran Abs Auto 0.01 X10*3/uL (0.00-0.03); Imm Gran Pct Auto 0.1 % (0.0-0.4); Lymphocytes Absolute Auto 4.8 X10*3/uL (1.2-4.9); Lymphocytes Percent Auto 57.8 % (20-40); Mean Corpuscular HGB Conc 33.2 g/dl (31.0-35.0); Mean Corpuscular Hemoglobin 27.8 pg (27.0-33.0); Mean Corpuscular Volume 83.9 fL (80.0-98.0); Mean Platelet Volume 11.2 fL (9.4-12.3); Monocytes Absolute Auto 0.6 X10*3/uL (0.1-1.2); Monocytes Percent Auto 7.1 % (2-11); Neutrophils Absolute Auto 2.4 x10*3/uL (2.0-8.3); Neutrophils Percent Auto 28.3 % (45-73); Platelet Count 329 X10*3/uL (160-400); Red Blood Count 4.67 X10*6/uL (4.20-5.50); Red Cell Distribution Width 14.7 % (11.0-16.0); White Blood Count 8.4 X10*3/uL (4.8-10.8)
[2024-11-30 13:46] LABS: Alanine Aminotransferase 19 U/L (0-31); Albumin Level 3.9 g/dL (3.5-5.0); Alkaline Phosphatase 90 U/L (39-117); Anion Gap 13 (12-20); Aspartate Amino Transferase 28 U/L (5-31); Bilirubin Total 0.3 mg/dL (0.0-1.0); Blood Urea Nitrogen 15 mg/dL (9-16); Calcium 8.7 mg/dL (8.4-10.2); Carbon Dioxide 22 mmol/L (22-29); Chloride 109 mmol/L (96-108); Cholesterol 199 mg/dL (<200); Estimated Glomerular Filt Rate 39; Glucose Fasting 98 mg/dL (60-99); HDL Cholesterol 72 mg/dL (>40); LDL Cholesterol Calculated 109 mg/dL (<100); Potassium 3.6 mmol/L (3.3-5.1); Sodium 140 mmol/L (135-145); Total Protein 7.2 g/dL (6.5-8.0); Triglycerides 90 mg/dL (<150)
[2024-11-30 13:56] LABS: Syphilis Screen Nonreactive (Nonreactive)
[2024-11-30 13:57] LABS: HBc Num1 0.23 S/CO (0.00-0.79); HIV AB/AG Nonreactive (Nonreactive); HIV Num 1 0.05 S/CO (0.00-0.99); Hepatitis B Core Antibody Nonreactive (Nonreactive); ~HepC Num1 0.09 S/CO (0.00-0.79); ~Hepatitis C Antibody Nonreactive (Nonreactive)
[2024-11-30 14:03] LABS: Ferritin 53 ng/mL (10-250); TSH reflex Free T4 10.99 uIU/mL (0.32-4.0)
[2024-11-30 14:10] LABS: Folate 7.2 ng/mL (> or = 4.0); Vitamin B12 208 pg/mL (200-900)
[2024-11-30 14:43] LABS: Free T4 (Free Thyroxine) 0.99 ng/dL (0.71-1.85)
[2024-12-01 09:39] LABS: Lyme Abs Screen <0.90 index
[2024-12-01 12:58] LABS: Hematocrit 40.4 % (35.0-45.0); Hemoglobin 13.3 g/dL (11.7-15.5); MCH 28.3 pg (27.0-33.0); RDW 13.2 % (11.0-15.0)
[2024-12-01 23:29] LABS: A. Phagocytphilium DNA,RT-PCR NOT DETECTED (NOT DETECTED); Babesia Microti DNA, RT-PCR NOT DETECTED (NOT DETECTED); Borrelia Miyamotoi,DNA RT-PCR NOT DETECTED (NOT DETECTED); E.Chaffeensis DNA RT-PCR NOT DETECTED (NOT DETECTED); Lyme(Borrelia ssp)DNA RT-PCR NOT DETECTED (NOT DETECTED)
[2024-12-02 15:18] LABS: Anti Nuclear Antibody Screen NEGATIVE (NEGATIVE)
== END 2024-11-30 10:24 | disposition home or self-care (01) ==
LOC: HO.HMGCLDS 10:23
PROVIDERS: PCP Nurse Practitioner Family; Referring Provider Advanced Practice Midwife; Visit Provider Nurse Practitioner Family
DX: R53.83 Other fatigue (principal); Z20.2 Contact with and (suspected) exposure to infections with a predominantly sexual mode of transmission
CPT/HCPCS: 36415; 80053; 80061; 82306; 82607; 82728; 82746; 83020; 84439; 84443; 85014; 85018; 85025; 85041; 86038; 86617; 86618; 86704; 86780; 86803; 87389; 87468; 87469; 87478; 87484; 87798

== ENCOUNTER 2024-12-02 10:30 | Outpatient (REF) | payer MEDICARE, SELFPAY ==
[2024-12-02 13:26] LABS: Appearance Urine Clear; Color Urine Yellow; Glucose Urine UA Negative (Negative); Leukocyte Esterase Urine Negative (Negative); Nitrite Urine Negative (Negative); Urine Blood Negative (Negative); Urine Ketones Negative (Negative); Urine Protein Trace mg/dL (Neg-Trace)
== END 2024-12-02 10:31 | disposition home or self-care (01) ==
LOC: HO.HMGCLNP 10:30
PROVIDERS: PCP Nurse Practitioner Family; Visit Provider Nurse Practitioner Family
DX: I35.1 Nonrheumatic aortic (valve) insufficiency (principal); I34.0 Nonrheumatic mitral (valve) insufficiency
CPT/HCPCS: 81003

== ENCOUNTER 2024-12-07 08:46 | Outpatient (AMB) | payer MEDICARE, SELFPAY ==
--- NOTE | 2024-12-07 08:48 | A.OFFPC_ITS ---
Vital Signs 12/07/24 08:49 Height 5 ft 0.5 in Weight 156 lb BMI 30.0 BP 132/70 Blood Pressure Location Rt brachial Position Sitting Pulse 72 Pulse Source Pulse Oximeter Temp 97.9 F Temp Source Oral Oxygen Delivery Method Room Air Intake Visit Reasons: Annual PE Intake Note: pt is here for annual exam Junior Brand Manager Required: No Accompanied by: Self / Same As Patient Allergies apples Allergy (Unknown, Uncoded 12/07/24 08:49) anaphylaxis TREE NUTS Allergy (Unknown, Uncoded 12/07/24 08:49) RASH tree nuts Allergy (Unknown, Uncoded 12/07/24 08:49) anaphylaxis Medication List - Last Reconciled 12/07/24 by Malvin Medina [employer]- cholecalciferol (vitamin D3) 1,250 mcg PO QWEEK 90 days clonazepam 0.5 mg PO DAILY PRN 30 days duloxetine (Cymbalta) 30 mg PO BID hydroxyzine pamoate 50 mg PO QID PRN 90 days levothyroxine 112 mcg PO DAILY methylphenidate HCl (Ritalin) 20 mg PO BID omeprazole 40 mg PO DAILY rosuvastatin 40 mg PO DAILY zolpidem 10 mg PO BEDTIME PRN Tobacco use date assessed: 12/07/24 Dental Screening Dental Screen Date: 12/07/24 Did you have a dental visit in the last 12 months?: Yes Did you have a dental problem in the last 6 months where you did not have access to dental care?: No Was dental information given to patient?: Patient has dentist HPI Annual PE HPI Details History of Present Illness The patient is a 59-year-old female presenting for a physical examination. She has a known history of hypothyroidism, with recent laboratory tests indicating a TSH level above 10. Currently, she is prescribed levothyroxine 100 mcg, which will be adjusted due to the elevated TSH levels. She also has a history of lymphoma and it has been observed that her lymphocytes are increasing. The enid ent has noted weight loss, which she attributes to dietary changes, and experiences some fatigue. There is a noted, slightly enlarged right cervical lymph node. Previously, she has been under psychiatric care and denies any suicidal or homicidal thoughts. Health Maintenance - Mammogram is up to date; order will be placed for a repeat as due this month. - Colon cancer screening is current. - Regular gynecological screenings for c ervical cancer. Social History - Actively managing diet to promote weig ht loss. - Regular psychiatric follow-up. Review of Systems - General: Reports weight loss and fatig ue. - Cardiovascular: Reports no chest pain. - Respiratory: Denies shortness of breat h. - Gastrointestinal: Denies constipation, diarrhea, or blood in stool. - Neurological: Denies numbness or tingl ing. Physical Exam General: Cooperative, healthy appearing, comfortable, no acute distress and well developed Orientation: Patient oriented x3 Limitations: No limitations Head: Normal to inspection Ears: Hearing grossly normal bilaterally Nose: Normal external nose present Face and sinus: Normal facial exam Eyes: Appearance normal, both eyes and all related structures Neck: Right cervical node, slightly enlarged Respiratory: Normal respiratory effort and able to speak in complete sentences. Clear to auscultation bilaterally Cardiovascular: Regular rate and rhythm. Normal S1 and S2, systolic murmur noted GI: Normal to inspection. Soft to palpation and nontender Skin: No rashes or lesions noted Neuro: Patient oriented x3 Extremities: Trace edema noted Results - Labs: TSH elevated above 10. Plan - Increase levothyroxine dosage from 100 mcg to 112 mcg and recheck thyroid function in approximately 2 months. - Refer to hematology/oncology for furth er evaluation of increased lymphocytes and enlarged cervical node. - Monitor for changes or symptoms relate d to the systolic murmur. - Continue dietary management for weight loss. Patient was informed and verbally consented to the use of an ambient scribe for clinic note documentation during this visit. Discussion Notes I discussed with the patient the plan to increase the levothyroxine dosage in response to her elevated TSH levels. We will re-evaluate her thyroid function in two months. I advised a referral to hematology/oncology for further evaluation due to the increasing lymphocyte count and the slight enlargement of the cervical lymph node, considering her history of lymphoma. We discussed the current absence of concerning symptoms like chest pain or shortness of breath, and I encouraged her to continue monitoring these symptoms. We will continue to monitor her systolic murmur and ensure her health maintenance screenings remain up to date. Patient Instructions - Increase thyroid medication as instruc cari. - Follow up with hematology/oncology as scheduled. - Maintain current diet and weight manag ement plan. - Monitor for any new or changing sympto ms and report concerns. - Return to the clinic for further evalu ation as advised. [facility] Medical History Aortic regurgitation Idiopathic thrombocytopenic purpura (ITP) Hodgkins lymphoma Surgical History History of splenectomy Family History Maternal Aunt Ovarian cancer Family/Other History of breast cancer Social History Housing: Condominium Patient Tobacco Use Status: Never used Tobacco e-Cigarette/Vaping Use: Never Used Second Hand Smoke Exposure: No service: No Current occupational status: disabled Cognitive needs: No Hearing needs: No Vision needs: No Questionnaire PHQ-9 Over the last 2 weeks, how often have you been bothered by any of the following problems? 1. Little interest or pleasure in doing things: more than half the days 2. Feeling down, depressed, or hopeless: more than half the days 3. Trouble falling or staying asleep, or sleeping too much: several days 4. Feeling tired or having little energy: more than half the days 5. Poor appetite or overeating: not at all 6. Feeling bad about yourself - or that you are a failure or have let yourself or your family down: several days 7. Trouble concentrating on things, such as reading the newspaper or watching television: several days 8. Moving or speaking so slowly that other people could have noticed. Or the opposite - being so fidgety or restless that you have been moving around a lot more than usual: not at all 9. Thoughts that you would be better off or of hurting yourself in some way: not at all Total score: 9 Depression Screening Interpretation: Positive Depression Screening Follow-up: Existing condition and In treatment Depression Screening Done: Yes 15605 - PHQ-9 Billing: Yes Source: Developed by Drs. Rolando Mendoza, Carol Michaels, Rashaad Thornton and colleagues, with an educational donita from [place]. Thrive Questionnaire Date Thrive assessed: 12/07/24 I am a: Patient What is your living situation today?: I have a steady place to live Within the past 12 months, did the food you bought not last and you didn't have the money to get more?: Sometimes True Within the past 12 months, did you worry whether your food would run out before you got money to buy more?: Sometimes True Do you have trouble paying for medicines?: I choose not to answer this question Do you have trouble getting transportation to medical appointments?: No Do you have trouble paying your heating and electricity bill?: Yes Do you have trouble taking care of your child, family member or friend?: No Do you have trouble with day-to-day activities such as bathing, preparing meals, shopping, managing finances, etc.?: Yes Are you currently unemployed and looking for a job?: I choose not to answer this question Are you interested in more education?: Yes Please select the resources that you would like help with: None Currently or been in a relationship where the following occur: I choose not to answer THRIVE Score: 3 AUDIT C Alcohol Use Questionnaire (AUDIT-C) 1. How often do you have a drink containing alcohol?: Never 3. How often do you have six or more drinks on one occasion?: Never Total Score: 0 Score Reviewed/Action Taken: Yes DARREN-7 AMB Questionnaire DARREN-7 Date DARREN - 7 assessed: 12/07/24 Feeling nervous, anxious, or on edge: 2 = More than half the days Not being able to stop or control worryin = More than half the days Worrying too much about different things: 3 = Nearly every day Trouble relaxin = More than half the days Being so restless that it is hard to sit still: 1 = Several days Becoming easily annoyed or irritable: 1 = Several days Feeling afraid as if something awful might happen: 2 = More than half the days Total DARREN-7 score (0-4 normal; 5-9 mild; 10-14 moderate; 15-21 severe): 13 Source: Developed by Drs. Rolando Mendoza, Carol Michaels, Rashaad Thornton and colleagues, with an educational donita from [place]. DARREN-7 Assessment Billing DARREN-7 Assessment Tool: DARREN-7 Assessment 49836 Physical exam (Primary Care) Vital Signs: Last Vital Signs Temp 97.9 F 12/07/24 08:49 Pulse 72 12/07/24 08:49 BP 132/70 12/07/24 08:49 Oxygen Delivery Method Room Air 12/07/24 08:49 BMI result Body Mass Index 30.0 Tobacco/Smoking Status: Tobacco use Status Tobacco use date assessed 12/07/24 12/07/24 08:50 Patient Tobacco Use Status Never used Tobacco 12/07/24 08:50 e-Cigarette/Vaping Use Never Used 12/07/24 08:50 PHQ-9: PHQ-9 Score PHQ-9: Total score 9 12/07/24 09:25 Depression Screening Interpretation: Positive Depression Screening Follow-up: Existing condition and In treatment Thrive Assessment: Date of Thrive Assessment Date Thrive assessed 12/07/24 12/07/24 08:50 Currently or been in a relationship where the following occur: I choose not to answer Coding Level of Care Code Est Pt Prev Care 40-64y(96006) Diagnoses Physical exam Z00.00 Hypothyroid E03.9 Hodgkins lymphoma C81.90 Additional Codes DARREN-7 Assessment Billing - DARREN-7 Assessment Tool: DARREN-7 Assessment [id number] ([id number]) PHQ-9 - 53665 - PHQ-9 Billing: Yes ([id number]) Assessment & Plan Assessment & Plan (1) Physical exam: Code(s): Z00.00 - Encounter for general adult medical examination without abnormal findings Category: Medical (2) Hypothyroid: Code(s): E03.9 - Hypothyroidism, unspecified Category: Medical (3) Hodgkins lymphoma: Comment: 1982 Code(s): C81.90 - Hodgkin lymphoma, unspecified, unspecified site Category: Medical Plan . Orders: Orders MM screening mammo BI Today Z12.31 - Encounter for screening mammogram for malignant neoplasm of breast TSH reflex Free T4 2 Months E03.9 - Hypothyroidism, unspecified, Z00.00 - Encounter for general adult medical examination without abnormal findings Complete Blood Count Auto Diff 2 Months E03.9 - Hypothyroidism, unspecified, Z00.00 - Encounter for general adult medical examination without abnormal findings Comprehensive Met. Panel 2 Months E03.9 - Hypothyroidism, unspecified, Z00.00 - Encounter for general adult medical examination without abnormal findings Referrals Hematology & Oncology Referral C81.90 - Hodgkin lymphoma, unspecified, unspecified site Medications: Changed From levothyroxine 100 mcg PO DAILY 90 tabs 1RF To levothyroxine 112 mcg PO DAILY 90 tabs 1RF Refilled cholecalciferol (vitamin D3) 1,250 mcg PO QWEEK 90 days 13 caps 0RF
[2024-12-07 08:49] VITALS: BP 132/70; PULSE 72; TEMP 36.6
== END 2024-12-07 09:40 | disposition home or self-care (01) ==
PROVIDERS: PCP Nurse Practitioner Family; Visit Provider Nurse Practitioner Family
DX: Z00.00 Encounter for general adult medical examination without abnormal findings (principal); E03.9 Hypothyroidism, unspecified; C81.90 Hodgkin lymphoma, unspecified, unspecified site

== ENCOUNTER → 2024-12-07 08:46 | Outpatient (BNVA) | payer MEDICARE, SELFPAY | PROVIDERS: PCP Nurse Practitioner Family; Visit Provider Nurse Practitioner Family | DX: Z00.00 Encounter for general adult medical examination without abnormal findings (principal); E03.9 Hypothyroidism, unspecified; C81.90 Hodgkin lymphoma, unspecified, unspecified site | CPT/HCPCS: 96127; 99396 ==

== ENCOUNTER 2024-12-22 10:01 | Outpatient (AMB) | payer MEDICARE, SELFPAY ==
--- NOTE | 2024-12-22 10:06 | MHC.OFFVISPS ---
Intake Intake Visit Reasons: consultation Wireless Consultant Required: No Allergies apples Allergy (Unknown, Uncoded 12/07/24 08:49) anaphylaxis TREE NUTS Allergy (Unknown, Uncoded 12/07/24 08:49) RASH tree nuts Allergy (Unknown, Uncoded 12/07/24 08:49) anaphylaxis Medication List - Last Reconciled 12/22/24 by Pippa Jiménez APRN cholecalciferol (vitamin D3) 1,250 mcg PO QWEEK 90 days clonazepam 0.5 mg PO DAILY PRN 30 days duloxetine (Cymbalta) 30 mg PO BID hydroxyzine pamoate 50 mg PO QID PRN 90 days levothyroxine 112 mcg PO DAILY methylphenidate HCl (Ritalin) 20 mg PO BID omeprazole 40 mg PO DAILY rosuvastatin 40 mg PO DAILY zolpidem 10 mg PO BEDTIME PRN HPI- Psychiatric Chief Complaint: consultation HPI Narrative: Pt reports improvement in mood, anxiety, sleep and ADHD symptoms. Pt struggles with winter weather; she has financial stress and only uses a space heater for her bedroom so that restricts her activities in the house; she is hopeful about future and feeling more energy to get things done. Her PHQ9= 9 down from 12 and her GAD7 is 8 down from 10. She denies side effects from medications; she uses the clonazepam sparingly. she feels the cymbalta and hydroxyzine is helping her mood and anxiety; the ritalin has given her relief from brain fog and helped her plan and organize. NO SI or HI. no reported side effects. Past Psychiatric History: Outpatient counseling and day treatment in the past no inpatient level of care Subjective Subjective Subjective Medication Compliance: Yes Side effects from medications: No Review of Systems Medical Review of Systems: unchanged Mental Status Exam Mental Status Exam Patient Appearance: Well Grooomed and Appropriate Patient Orientation: Person, Place, Time and Situation Level of Consciousness: Awake, Appropriate and Alert Patient Behavior: Appropriate and Cooperative Mood Description: Anxious Affect Description: Appropriate and Anxious Patient Cognition Impaired: No Ability to Follow Directions: Good Speech Pattern: Clear and Appropriate Memory Description: Intact Hallucinations: None Delusions: Not Present Thought Process: Intact, Distracted and Goal Oriented Thought Content: positive for Intact, positive for Goal Oriented and positive for Loose Associations Judgement: Fair Assessment and Plan Assessment & Plan (1) ADHD: Status: Acute Qualifiers: Attention 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 Qualified Code(s): F90.0 - Attention-deficit hyperactivity disorder, predominantly inattentive type Code(s): F90.9 - Attention-deficit hyperactivity disorder, unspecified type (2) Generalized anxiety disorder with panic attacks: Status: Acute Code(s): F41.1 - Generalized anxiety disorder; F41.0 - Panic disorder [episodic paroxysmal anxiety] (3) Major depressive disorder, recurrent, moderate: Status: Acute Code(s): F33.1 - Major depressive disorder, recurrent, moderate Plan continue cymbalta 30mg BID hydroxyzine 50mg BID prn anxiety clonazepam 0.5mg qd prn anxiety zolpidem 10 mg at bedtime ritalin 20mg BID discussed with patient that if she continues to improve and feels ready she will return to PCP care after next visist she s also waiting for therapist from [facility] Medications: Refilled methylphenidate HCl (Ritalin) Partial Fill upon patient request. 20 mg PO BID 60 tabs 0RF clonazepam TEVA BRAND 0.5 mg PO DAILY PRN 30 tabs 2RF severe anxiety 30 days zolpidem 10 mg PO BEDTIME PRN 30 tabs 2RF sleep Counseling and coordination of Care Pt. Self Management counseling: Maintenance-social rhythm, Mod caffeine/ETOH intake, Nutrition education and improvement, Sleep hygiene, Behavior activation, General coping skills and Problem solving Medication management counseling: Effectiveness, Side effects, Dosing range, Duration, Drug interaction and Adherence Diagnosis and Prognosis Counseling: Accuracy of diagnosis, Prognosis over time, Impact of diagnosis on life functions, Impact of family relationship, Problematic behaviors secondary to diagnosis and Adequacy of current interventions Details: I spent 40 minutes reviewing the record, seeing the patient and documenting in the medical record. Counseling provided to the patient/caregiver as outlined below. Addressed patient/caregiver concerns regarding current medication regime including effective adherence. Addressed patient/caregiver concerns regarding diagnosis and prognosis including accuracy of diagnosis, prognosis over time, impact of diagnosis. Addressed patient/caregiver concerns regarding impact of recent stressors. [facility] Medical History (Updated 12/07/24 @ 09:28 [facility] Aortic regurgitation Idiopathic thrombocytopenic purpura (ITP) Hodgkins lymphoma Surgical History History of splenectomy Family History Maternal Aunt Ovarian cancer Family/Other History of breast cancer Social History Housing: Condominium Patient Tobacco Use Status: Never used Tobacco e-Cigarette/Vaping Use: Never Used Second Hand Smoke Exposure: No service: No Current occupational status: disabled Cognitive needs: No Hearing needs: No Vision needs: No Social History: Patient grew up in [place] she live with her mother her parents were for 24 years she was an only child her father left family when she was quite young and started a new family she does have a half-brother and half-sister that she has no relationship with she attended school in [place] and did well until her isabell year when she was diagnosed with Hodgkin's disease and was in and out of school for the entire year she went back to school in her senior year she did graduate but she felt estranged from her peers 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 She became disabled after taking care of her mother who got sick in the same year she was it triggered a severe depression and she has been able to work since then Substance History: None Trauma History: Yes childhood Coding Level of Care Code Est Pt Level 4 (74241) Diagnoses Attention deficit hyperactivity disorder (ADHD), predominantly inattentive type F90.0 Attention 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 Generalized anxiety disorder with panic attacks F41.1; F41.0 Major depressive disorder, recurrent, moderate F33.1
== END 2024-12-22 10:34 | disposition home or self-care (01) ==
LOC: HO.HOP 10:01
PROVIDERS: PCP Nurse Practitioner Family; Visit Provider Clinical Nurse Specialist Psychiatric/Mental Health
DX: F90.0 Attention-deficit hyperactivity disorder, predominantly inattentive type (principal); F41.1 Generalized anxiety disorder; F41.0 Panic disorder [episodic paroxysmal anxiety]; F33.1 Major depressive disorder, recurrent, moderate
CPT/HCPCS: 99214

== ENCOUNTER → 2024-12-22 10:01 | Outpatient (BNVA) | payer MEDICARE, SELFPAY | PROVIDERS: PCP Nurse Practitioner Family; Visit Provider Clinical Nurse Specialist Psychiatric/Mental Health | DX: F90.0 Attention-deficit hyperactivity disorder, predominantly inattentive type (principal); F41.1 Generalized anxiety disorder; F41.0 Panic disorder [episodic paroxysmal anxiety]; F33.1 Major depressive disorder, recurrent, moderate; Z71.89 Other specified counseling | CPT/HCPCS: 99212 ==

== ENCOUNTER 2025-01-04 15:12 | Outpatient (REF) | payer MEDICARE, SELFPAY ==
--- NOTE | ~2025-01-04 | MM_ITS ---
EXAMINATION: MM SCREENING DIGITAL BREAST TOMOSYNTHESIS, BILATERAL CLINICAL INFORMATION: Screening. Asymptomatic. COMPARISON: Mammography: Comparison is made with available priors TECHNIQUE: Digital breast mammography with tomosynthesis is performed in both the craniocaudal and mediolateral oblique views along with computer-aided detection (CAD). FINDINGS: The breasts are heterogeneously dense, which may obscure small masses (ACR BI-RADS breast composition Category c). There are no significant masses, abnormal calcifications, or other abnormalities. MM/MM tomosynthesis screening BI IMPRESSION: No mammographic evidence of malignancy. ASSESSMENT: BI-RADS BI-RADS 1 - Negative RECOMMENDATION: Routine annual mammography screening. 1 year F/U This examination should not preclude the clinical evaluation of a suspicious palpable abnormality. This patient's information was entered into a reminder system with a target due date for their next mammogram. Electronically signed by: Flaca Claudio DO 01/07/2025 06:01 AM SADIA
== END 2025-01-04 15:13 | disposition home or self-care (01) ==
LOC: HO.MAMMO 15:12
PROVIDERS: PCP Nurse Practitioner Family; Visit Provider Nurse Practitioner Family
DX: Z12.31 Encounter for screening mammogram for malignant neoplasm of breast (principal)
CPT/HCPCS: 77063; 77067

== ENCOUNTER → 2025-01-04 15:45 | Outpatient (BNV) | payer MEDICARE, SELFPAY | PROVIDERS: PCP Nurse Practitioner Family; Visit Provider Internal Medicine | DX: Z12.31 Encounter for screening mammogram for malignant neoplasm of breast (principal) | CPT/HCPCS: 77063; 77067 ==

== ENCOUNTER → 2025-01-19 10:56 | Outpatient (BNV) | payer MEDICARE, SELFPAY | PROVIDERS: PCP Nurse Practitioner Family; Referring Provider Nurse Practitioner Family; Visit Provider Internal Medicine | DX: D72.820 Lymphocytosis (symptomatic) (principal) | CPT/HCPCS: 99204 ==

== ENCOUNTER 2025-02-16 10:08 | Outpatient (AMB) | payer MEDICARE, SELFPAY ==
--- NOTE | 2025-02-16 10:38 | A.OFFPSYCH_ITS ---
Intake Intake Visit Reasons: consultation Computing Architect Required: No Allergies apples Allergy (Unknown, Uncoded 12/07/24 08:49) anaphylaxis TREE NUTS Allergy (Unknown, Uncoded 12/07/24 08:49) RASH tree nuts Allergy (Unknown, Uncoded 12/07/24 08:49) anaphylaxis Medication List - Last Reconciled 02/16/25 by Pippa Jiménez APRN cholecalciferol (vitamin D3) 1,250 mcg PO QWEEK 90 days clonazepam 0.5 mg PO DAILY PRN 30 days duloxetine (Cymbalta) 30 mg PO BID hydroxyzine pamoate 50 mg PO QID PRN 90 days levothyroxine 112 mcg PO DAILY methylphenidate HCl (Ritalin) 20 mg PO BID omeprazole 40 mg PO DAILY rosuvastatin 40 mg PO DAILY zolpidem 10 mg PO BEDTIME PRN HPI- Psychiatric Chief Complaint: consultation HPI Narrative: pt reports she is still strugglign with depression and anxiety; Her PHQ9=11 and GAD7=15. Sheis temulous and anxious. she is compliant with medications. she reports significant stress due to financial issues. she can not manage her home and household takss well. she had her thyroid meds increased but looks like she is in hyperthyroid range now- asked her to call her PCP eddy. pt also having a work up from oncologist due to abnormal blood cells. Pt is overtly cheerful but clearly struggling; she did not eat for 3 days due to runningout of money. she fed her cats during this time but not herslef; she helps neighbors but doesn;t easily ask for help. No SI or HI. Past Psychiatric History: Outpatient counseling and day treatment in the past no inpatient level of care Subjective Subjective Subjective Medication Compliance: Yes Side effects from medications: No Review of Systems Medical Review of Systems: unchanged Mental Status Exam Mental Status Exam Patient Appearance: Well Grooomed and Appropriate Patient Orientation: Person, Place, Time and Situation Level of Consciousness: Awake, Appropriate and Alert Patient Behavior: Appropriate and Restless Mood Description: Cheerful and Anxious Affect Description: Cheerful and Anxious Patient Cognition Impaired: No Ability to Follow Directions: Good Speech Pattern: Clear and Appropriate Memory Description: Intact Hallucinations: None Delusions: Not Present Thought Process: Intact Thought Content: positive for Intact Judgement: Fair Assessment and Plan Assessment & Plan (1) ADHD: Status: Acute Qualifiers: Attention 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 Qualified Code(s): F90.0 - Attention-deficit hyperactivity disorder, predominantly inattentive type Code(s): F90.9 - Attention-deficit hyperactivity disorder, unspecified type (2) Major depressive disorder, recurrent, moderate: Status: Acute Code(s): F33.1 - Major depressive disorder, recurrent, moderate (3) Anxiety with depression: Status: Acute Code(s): F41.8 - Other specified anxiety disorders Plan continue meds as per below increased clonazepam to bid prn anxiety Medications: Changed From clonazepam TEVA BRAND 0.5 mg PO DAILY 30 days PRN 30 tabs 2RF severe anxiety To clonazepam TEVA BRAND 0.5 mg PO BID PRN 60 tabs 2RF severe anxiety 30 days Refilled zolpidem 10 mg PO BEDTIME PRN 30 tabs 2RF sleep methylphenidate HCl (Ritalin) Partial Fill upon patient request. 20 mg PO BID 60 tabs 0RF Counseling and coordination of Care Pt. Self Management counseling: Mod caffeine/ETOH intake and Sleep hygiene Medication management counseling: Effectiveness, Side effects, Dosing range, Duration, Drug interaction and Adherence Diagnosis and Prognosis Counseling: Accuracy of diagnosis, Prognosis over time, Impact of diagnosis on life functions, Impact of family relationship, Problematic behaviors secondary to diagnosis and Adequacy of current interventions Details: I spent 45 minutes reviewing the record, seeing the patient and documenting in the medical record. Counseling provided to the patient/caregiver as outlined below. Addressed patient/caregiver concerns regarding current medication regime including effective adherence. Addressed patient/caregiver concerns regarding diagnosis and prognosis including accuracy of diagnosis, prognosis over time, impact of diagnosis. Addressed patient/caregiver concerns regarding impact of recent stressors. [facility] Medical History (Updated 01/19/25 @ 15:08 by Naomy Payton MD) Aortic regurgitation Idiopathic thrombocytopenic purpura (ITP) Hodgkins lymphoma Surgical History (Updated 01/19/25 @ 15:08 by Naomy Payton MD) History of splenectomy Family History Maternal Aunt Ovarian cancer Family/Other History of breast cancer Father Gelineau syndrome Social History (Updated 01/19/25 @ 11:42 by Renard Townsend) Household Members: None Housing: Condominium Patient Tobacco Use Status: Never used Tobacco e-Cigarette/Vaping Use: Never Used Second Hand Smoke Exposure: No Use of substances other than those prescribed or required for medical reasons: No Do you feel safe in your current relationship?: No Current Relationship Do you have thoughts of harming others: None Do you have a plan to hurt others: No Plan service: No Current occupational status: disabled Gender identity: Female Cognitive needs: No Hearing needs: No Vision needs: No Social History: Patient grew up in [place] she live with her mother her parents were for 24 years she was an only child her father left family when she was quite young and started a new family she does have a half-brother and half- sister that she has no relationship with she attended school in [place] and did well until her isabell year when she was diagnosed with Hodgkin's disease and was in and out of school for the entire year she went back to school in her senior year she did graduate but she felt estranged from her peers 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 She became disabled after taking care of her mother who got sick in the same year she was it triggered a severe depression and she has been able to work since then Substance History: None Trauma History: Yes childhood Coding Level of Care Code Est Pt Level 4 (99097) Therapy 30m w/E&M (94080) Diagnoses Attention deficit hyperactivity disorder (ADHD), predominantly inattentive type F90.0 Attention 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 Major depressive disorder, recurrent, moderate F33.1 Anxiety with depression F41.8
== END 2025-02-16 10:50 | disposition home or self-care (01) ==
LOC: HO.HOP 10:08
PROVIDERS: PCP Nurse Practitioner Family; Visit Provider Clinical Nurse Specialist Psychiatric/Mental Health
DX: F90.0 Attention-deficit hyperactivity disorder, predominantly inattentive type (principal); F33.1 Major depressive disorder, recurrent, moderate; F41.8 Other specified anxiety disorders
CPT/HCPCS: 90833; 99214

== ENCOUNTER → 2025-02-16 10:08 | Outpatient (BNVA) | payer MEDICARE, SELFPAY | PROVIDERS: PCP Nurse Practitioner Family; Visit Provider Clinical Nurse Specialist Psychiatric/Mental Health | DX: F90.0 Attention-deficit hyperactivity disorder, predominantly inattentive type (principal); F33.1 Major depressive disorder, recurrent, moderate; F41.8 Other specified anxiety disorders | CPT/HCPCS: 99212 ==

== ENCOUNTER 2025-04-20 09:57 | Outpatient (AMB) | payer MEDICARE, SELFPAY ==
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
--- OUTSIDE RECORDS SUMMARY | 2025-04-20 11:12 | XMS_ITS | Patient Health Record ---
Author Organization [facility] Address [address] [place] [address] Care Team Providers Care Patternmaker Apprentice Wood Name Role Phone Pavan CARIAS, Fatmata Primary Care Provider Unav ailable Black Regla Unavailable [phone] Reason For Referral No Information Medications Medication SIG (Take, Route, Fr equency, Duration) Notes Start Date End Date Status Vitamin D 2000 UNIT as directed Orally Active Synthroid 25 MCG 1 tablet every morni ng on an empty stomach Orally Once a day for 30 day(s) Active Problems Problem Type SNOMED Code ICD Code Onset Dates Problem Status W/U Status Risk Notes Problem Onychomycosis (388524334) Onychomycosis (110.1) Active confirmed Problem Pain in limb (85569754) Pain in Limb (729.5) Active confirmed Problem Ingrowing nail (456116269) Ingrowing Nail (703.0) Active confirmed Plan Of Treatment No Information Insurance Providers Payer Name Payer Address Payer Phone Subscriber Number Group Number Insured Name Patient Relationship to Insured Coverage Start Date Coverage End Date [facility] [employer] [address] [place] [address] [id number] Krunal Marte Spouse - patient is the spouse of the insured Medical (General) History Medical History History ICD Code anxiety keloids thyroid disorder Surgical History Surgery Date(Month/Year) splenectomy 1982
== END 2025-04-20 10:35 | disposition home or self-care (01) ==
LOC: HO.HOP 09:57
PROVIDERS: PCP Nurse Practitioner Family; Visit Provider Clinical Nurse Specialist Psychiatric/Mental Health
DX: F90.0 Attention-deficit hyperactivity disorder, predominantly inattentive type (principal); F41.1 Generalized anxiety disorder; F41.0 Panic disorder [episodic paroxysmal anxiety]
CPT/HCPCS: 99214

== ENCOUNTER → 2025-04-20 09:57 | Outpatient (BNVA) | payer MEDICARE, SELFPAY | PROVIDERS: PCP Nurse Practitioner Family; Visit Provider Clinical Nurse Specialist Psychiatric/Mental Health | DX: F90.0 Attention-deficit hyperactivity disorder, predominantly inattentive type (principal); F41.1 Generalized anxiety disorder; F41.0 Panic disorder [episodic paroxysmal anxiety] | CPT/HCPCS: 99212 ==

== ENCOUNTER 2025-04-24 22:12 | Inpatient (IN) | payer MEDICARE, SELFPAY ==
[2025-04-24 22:19] VITALS: BP 158/108; BP 159/88; PULSE 103; PULSE 120; RESP 18; TEMP 36.9; O2SAT 98; O2SAT 99; BMI 26.0
--- NOTE | 2025-04-24 22:43 | ED.PSYCH ---
HPI - Psych General Chief Complaint: Psychiatric Symptoms Stated Complaint: AMS Time Seen by Provider: 04/24/25 22:28 Source: patient Mode of arrival: EMS Limitations: no limitations History of Present Illness ED Provider: HPI Narrative: Patient is 59 years old with history of ITP Hodgkin's lymphoma be ADHD predominantly inattentive type and anxiety and panic disorder on Klonopin duloxetine and Ritalin BIBA after bizarre behavior noticed by the neighbor patient was found wandering the parking lot outside their apartment jittery unsteady says that she has not taken her Klonopin today was seen by therapist on 04/20 according to patient's patient was having some eye infection blepharitis in the past and feeling rash and feeling need some air to relax denies any SI or HI says that she wants to sleep to relax Related Data Home Medications ?Medication ?Instructions ?Recorded ?Confirmed cholecalciferol (vitamin D3) 1,250 1,250 mcg PO QWEEK 04/26/25 04/26/25 mcg (50,000 unit) capsule clonazepam 0.5 mg tablet 0.5 mg PO BID PRN Anxiety 04/26/25 04/26/25 duloxetine 30 mg capsule,delayed 30 mg PO BID 04/26/25 04/26/25 release hydroxyzine pamoate 50 mg capsule 50 mg PO QID PRN anxiety 04/26/25 04/26/25 levothyroxine 112 mcg tablet 112 mcg PO DAILY 04/26/25 04/26/25 methylphenidate HCl 20 mg tablet 20 mg PO BID 04/26/25 04/26/25 omeprazole 40 mg capsule,delayed 40 mg PO DAILY 04/26/25 04/26/25 release rosuvastatin 40 mg tablet 40 mg PO DAILY 04/26/25 04/26/25 zolpidem 10 mg tablet 10 mg PO BEDTIME PRN insomnia 04/26/25 04/26/25 Allergies Allergy/AdvReac Type Severity Reaction Status Date / Time apples Allergy Unknown anaphylaxis Uncoded 04/24/25 22:28 TREE NUTS Allergy Unknown RASH Uncoded 04/24/25 22:28 tree nuts Allergy Unknown anaphylaxis Uncoded 04/24/25 22:28 [facility] Past Medical History Medical History Aortic regurgitation Idiopathic thrombocytopenic purpura (ITP) Hodgkins lymphoma Surgical History History of splenectomy Family History Family History Maternal Aunt Ovarian cancer Family/Other History of breast cancer Father Gelineau syndrome Social History Social History Household Members: None Housing: Condominium Do you presently have visiting nurse or other home services: No Patient Tobacco Use Status: Never used Tobacco Smoked in Last 30 Days: No e-Cigarette/Vaping Use: Never Used Patient Interested in Nicotine Replacement: No Patient Given Instructions on How to Stop Smoking: No Second Hand Smoke Exposure: No Currently Displaying Signs/Symptoms of Drug Intoxication Withdrawal: No Have you been hit, kicked, punched, or otherwise hurt by someone within the past year? If so, by whom?: No Do you feel safe in your current relationship?: No Current Relationship Is there a partner from a previous relationship who is making you feel unsafe now?: No Are you made to feel afraid or neglected: No Spiritual Healthcare Practices: None Presybeterian Healthcare Practices: None Cultural Healthcare Practices: None Advance Directives: No Advance Directives Information Provided: No Do you have thoughts of harming others: None Do you have a plan to hurt others: No Plan Recently lost weight without trying: No How much weight loss: Not applicable Eating poorly because of decreased appetite: No Nutrition screen score: 0 Nutrition Risks: No Nutritional Risk Patient : No : No Poor oral hygiene: No service: No Current occupational status: disabled Gender identity: Female Cognitive needs: No Hearing needs: No Vision needs: No Physical Exam Vital Signs: Vital Signs: Last Vital Signs Temp 98.9 F 04/27/25 20:00 Pulse 85 04/27/25 20:00 Resp 16 04/27/25 20:00 BP 110/54 L 04/27/25 20:00 Pulse Ox 95 04/27/25 20:00 O2 Del Method Room Air 04/27/25 20:00 BMI result Body Mass Index 26.0 Appearance: Alert. Oriented X3. No acute distress. Anxious Eyes: Crusted eyelids both sides normal conjunctiva ENT: Pharynx normal. Oral Mucosa moist Neck: Normal inspection. Neck supple. CVS: Normal heart rate and rhythm. Pulses normal. Respiratory: No respiratory distress. Equal air entry bilateral, no wheezing/rales/rhonchi Abdomen: Soft and nontender. Bowel sounds are present, no mass palpable, no CVA tenderness Skin: Skin warm and dry. Normal skin color. Normal skin turgor. Extremities: No lower extremity edema. No calf tenderness psych: Anxious denies any depression no suicidal ideation no hallucination or delusions Neuro: Oriented X 3. No motor deficit. No sensory deficit.No cerebellar signs , cranial nerves II-XII intact Course Reevaluation(s) Reevaluation #1: I, Dr. Irene have take over the care of this patient, I reviewed pertinent blood work and imaging, re-evaluated the patient when appropriate. Received text from care team that they need to detox before patient is able to be seen Time: 07:46 Reevaluation #2: Patient evaluated, care provider would like to re-evaluate her a little later as well pending improvement in her status Time: 09:51 Reevaluation #3: Time: 07:52 Date: 04/26/25 Provider: Rk Plasencia MD Patient in physician observation for psychiatric evaluation.? No acute events reported overnight. No current complaints. VS stable.? Patient is in bed search status. Will continue to monitor. Time: 14:00Date: 04/26/25 Provider: Rk Plasencia MD Physician observation ended at 14:00. Patient to be admitted as inpatient to psychiatry. Medications Administered Generic Name Dose Route Start Last Admin Trade Name Freq PRN Reason Stop Dose Admin Al Hydroxide/Mg Hydroxide 30 ml 04/26/25 13:12 04/26/25 21:39 Magnesium Hydrox/Alum Hydrox 30 Ml Oral.Susp PO 30 ml Q6H PRN Administration Heartburn/Nausea Atorvastatin Calcium 80 mg 04/27/25 09:00 04/27/25 08:28 Atorvastatin Calcium 80 Mg Tablet PO 80 mg DAILY SUZANNA Administration Clonazepam 0.5 mg 04/26/25 13:12 04/27/25 20:57 Clonazepam 0.5 Mg Tablet PO 0.5 mg BID PRN Administration Anxiety Docusate Sodium 100 mg 04/27/25 12:00 04/27/25 13:02 Docusate Sodium 100 Mg Capsule PO Not Given BID SUZANNA Duloxetine HCl 30 mg 04/26/25 21:00 04/27/25 20:57 Duloxetine Hcl 30 Mg Capsule. PO 30 mg BID SUZANNA Administration Hydroxyzine HCl 50 mg 04/26/25 13:12 04/27/25 13:01 Hydroxyzine Hcl 50 Mg Tablet PO 50 mg QID PRN Administration Anxiety Omeprazole 40 mg 04/27/25 06:30 04/27/25 08:28 Omeprazole 40 Mg Capsule. PO 40 mg DAILY@0630 SUZANNA Administration Discontinued Medications Generic Name Dose Route Start Last Admin Trade Name Freq PRN Reason Stop Dose Admin Erythromycin 1 cm 04/24/25 22:58 04/25/25 00:21 Erythromycin Base 0.5% Oph Oin 1 Gm Tube EYE-BOTH 04/24/25 22:59 1 cm ONCE ONE Administration Sodium Chloride 1,000 mls @ 999 mls/hr 04/25/25 06:20 04/25/25 08:00 Ns IV 04/25/25 07:20 Infused .Q1H1M ONE Infusion Levothyroxine Sodium 112 mcg 04/27/25 06:30 04/27/25 07:11 Levothyroxine Sodium 112 Mcg Tablet PO 112 mcg DAILY@0630 PENDING SALE TO [facility] Administration Tobramycin Sulfate 2 drop 04/24/25 22:58 04/25/25 00:21 Tobramycin Sulfate 0.3% Kavita Op 5 Ml Btl EYE-BOTH 04/24/25 22:59 2 drop ONCE ONE Administration Medical Decision Making Lab Data 04/24/25 23:04 04/24/25 23:04 Labs: Lab Results 04/24/25 04/25/25 Range/Units 23:04 08:14 WBC 8.6 (4.8-10.8) X10*3/uL RBC 4.03 L (4.20-5.50) X10*6/uL Hgb 11.1 L (12.0-16.0) g/dl Hct 32.0 L (37.0-47.0) % MCV 79.4 L (80.0-98.0) fL MCH 27.5 (27.0-33.0) pg MCHC 34.7 (31.0-35.0) g/dl RDW 15.3 (11.0-16.0) % Plt Count 288 (160-400) X10*3/uL MPV 10.1 (9.4-12.3) fL Immature Gran % (Auto) 0.1 (0.0-0.4) % Neut % (Auto) 50.4 (45-73) % Lymph % (Auto) 32.6 (20-40) % [place] % (Auto) 9.5 (2-11) % Eos % (Auto) 6.3 H (0-4) % Baso % (Auto) 1.1 (0-2) % Lymph # (Auto) 2.8 (1.2-4.9) X10*3/uL [place] # (Auto) 0.8 (0.1-1.2) X10*3/uL Eos # (Auto) 0.5 H (0.0-0.4) X10*3/uL Baso # (Auto) 0.1 (0.0-0.2) X10*3/uL Abs Immat Gran (auto) 0.01 (0.00-0.03) X10*3/uL Absolute Neuts (auto) 4.3 (2.0-8.3) x10*3/uL Absolute Nucleated RBC 0.000 (0.0-0.012) X10*3/uL Nucleated RBC % (auto) 0.0 (0.0-0.2) /100WBC Sodium 138 (135-145) mmol/L Potassium 3.3 (3.3-5.1) mmol/L Chloride 108 (96-108) mmol/L Carbon Dioxide 20 L (22-29) mmol/L Anion Gap 13 (12-20) BUN 25 H (9-16) mg/dL Creatinine 1.42 H (0.5-1.4) mg/dL Estim Creat Clear Calc 36.1 Estimated GFR 38 Random Glucose 87 (60-115) mg/dL Calcium 9.1 (8.4-10.2) mg/dL Magnesium 1.9 (1.6-2.6) mg/dL Total Bilirubin 0.8 (0.0-1.0) mg/dL AST 29 (5-31) U/L ALT 18 (0-31) U/L Alkaline Phosphatase 62 (39-117) U/L Total Protein 6.8 (6.5-8.0) g/dL Albumin 4.2 (3.5-5.0) g/dL TSH 0.29 L (0.32-4.0) uIU/mL Urine Color Dark Yellow Urine Appearance Cloudy Urine pH 5.5 (5.0-9.0) Ur Specific [place] >= 1.030 H (1.005-1.025) Urine Protein 30 (1+) H (Neg-Trace) mg/dL Urine Glucose (UA) Negative (Negative) mg/dL Urine Ketones 15 (Negative) mg/dL Urine Blood Negative (Negative) Urine Nitrite Negative (Negative) Ur Leukocyte Esterase Small (1+) H (Negative) Urine RBC 0-2 (0-2) /HPF Urine WBC 6-10 H (0-5) /HPF Ur Squamous Epith Cells 11-20 (0-2) /HPF Urine Bacteria Trace (None Seen) Hyaline Casts 11-20 (0-2) /LPF Urine Opiates Screen Not Detected (Not Detect) Ur Buprenorphine Scrn Not Detected (Not Detect) ng/mL Ur Oxycodone Screen Not Detected (Not Detect) ng/mL Urine Methadone Screen Not Detected (Not Detect) ng/mL Urine Fentanyl Screen Not Detected (Not Detect) Ur Barbiturates Screen Not Detected (Not Detect) Ur Phencyclidine Scrn POSITIVE H (Not Detect) Ur Amphetamines Screen Not Detected (Not Detect) U Benzodiazepines Scrn POSITIVE H (Not Detect) Urine Cocaine Screen POSITIVE H (Not Detect) U Marijuana (THC) Screen Not Detected (Not Detect) Ethyl Alcohol < 10 mg/dL Discharge Plan Discharge Clinical Impression: Behavior concern Patient Disposition: Admitted As Inpatient Interventions: Admission Worksheet (ED) Last Done: 04/26/25 14:09 Discharge Date/Time: 04/26/25 14:34
[2025-04-24 23:08] LABS: MANUAL DIFF FLAG NO
[2025-04-24 23:09] LABS: Basophils Absolute Auto 0.1 X10*3/uL (0.0-0.2); Basophils Percent Auto 1.1 % (0-2); Eosinophils Absolute Auto 0.5 X10*3/uL (0.0-0.4); Eosinophils Percent Auto 6.3 % (0-4); Hemoglobin 11.1 g/dl (12.0-16.0); Imm Gran Abs Auto 0.01 X10*3/uL (0.00-0.03); Imm Gran Pct Auto 0.1 % (0.0-0.4); Lymphocytes Absolute Auto 2.8 X10*3/uL (1.2-4.9); Lymphocytes Percent Auto 32.6 % (20-40); Mean Corpuscular HGB Conc 34.7 g/dl (31.0-35.0); Mean Corpuscular Hemoglobin 27.5 pg (27.0-33.0); Mean Corpuscular Volume 79.4 fL (80.0-98.0); Mean Platelet Volume 10.1 fL (9.4-12.3); Monocytes Absolute Auto 0.8 X10*3/uL (0.1-1.2); Monocytes Percent Auto 9.5 % (2-11); Neutrophils Absolute Auto 4.3 x10*3/uL (2.0-8.3); Neutrophils Percent Auto 50.4 % (45-73); Platelet Count 288 X10*3/uL (160-400); Red Blood Count 4.03 X10*6/uL (4.20-5.50); Red Cell Distribution Width 15.3 % (11.0-16.0); White Blood Count 8.6 X10*3/uL (4.8-10.8)
[2025-04-24 23:25] LABS: Ethanol < 10 mg/dL
[2025-04-24 23:29] LABS: Alanine Aminotransferase 18 U/L (0-31); Albumin Level 4.2 g/dL (3.5-5.0); Alkaline Phosphatase 62 U/L (39-117); Anion Gap 13 (12-20); Aspartate Amino Transferase 29 U/L (5-31); Bilirubin Total 0.8 mg/dL (0.0-1.0); Blood Urea Nitrogen 25 mg/dL (9-16); Calcium 9.1 mg/dL (8.4-10.2); Carbon Dioxide 20 mmol/L (22-29); Chloride 108 mmol/L (96-108); Creatinine Clr Calc Pharmacy 36.1; Estimated Glomerular Filt Rate 38; Glucose Random 87 mg/dL (60-115); Magnesium 1.9 mg/dL (1.6-2.6); Potassium 3.3 mmol/L (3.3-5.1); Sodium 138 mmol/L (135-145); Total Protein 6.8 g/dL (6.5-8.0)
[2025-04-24 23:44] LABS: Thyroid Stimulating Hormone 0.29 uIU/mL (0.32-4.0)
[2025-04-25] MEDS: Tobramycin Sulfate 0.3% Sol Op 5 ML BTL 2 DROP EYE-BOTH (00:21)
[2025-04-25] MEDS: Erythromycin Base 0.5% Oph Oin 1 GM TUBE 1 CM EYE-BOTH (00:21)
[2025-04-25 00:24] VITALS: BP 133/60; PULSE 101; RESP 14; TEMP 36.9; O2SAT 98
[2025-04-25 06:13] VITALS: BP 122/96; PULSE 96; RESP 14; TEMP 36.2; O2SAT 96
[2025-04-25] MEDS: 0.9 % Sodium Chloride 1,000 ML 999 ML IV (06:53)
[2025-04-25 08:00] VITALS: BP 158/67; PULSE 77; RESP 16; TEMP 36.6; O2SAT 95
--- NOTE | 2025-04-25 08:01 | PC.NURSE ---
Care of Pt assumed at change of shift. Pt is resting quietly with lights dimmed, snoring can be heard. Pt in need of urine spec for tox screen. IVF running CT eval to be completed following ox screen results.
[2025-04-25 08:20] LABS: Appearance Urine Cloudy; Color Urine Dark Yellow; Glucose Urine UA Negative (Negative); Leukocyte Esterase Urine Small (1+) (Negative); Nitrite Urine Negative (Negative); PH 5.5 (5.0-9.0); Specific Gravity - Urine >= 1.030 (1.005-1.025); UMIC TRIGGER UACC YES; Urine Blood Negative (Negative); Urine Ketones 15 mg/dL (Negative); Urine Protein 30 (1+) mg/dL (Neg-Trace)
[2025-04-25 08:31] LABS: Amphetamine Screen Urine Not Detected (Not Detect); Bacteria Urine Trace (None Seen); Barbiturates, Urine Not Detected (Not Detect); Benzodiazepines Screen Urine POSITIVE (Not Detect); Buprenorphine Scr Not Detected (Not Detect); Cannabinoid Screen Urine Not Detected (Not Detect); Cocaine Screen Urine POSITIVE (Not Detect); Fentanyl, urine Not Detected (Not Detect); Methadone Screen, Urine Not Detected (Not Detect); Opiate Screen Urine Not Detected (Not Detect); Oxycodone Screen Urine Not Detected (Not Detect); Phencyclidine Screen Urine POSITIVE (Not Detect); RBC Urine 0-2 /HPF (0-2); UACC Culture Trigger YES
--- NOTE | 2025-04-25 09:16 | PC.NURSE ---
Care Team at bedside for eval.
[2025-04-25 09:59] VITALS: BP 145/90; PULSE 86; RESP 19; TEMP 36.8; O2SAT 100
--- NOTE | 2025-04-25 10:46 | PC.NURSE ---
Psychiatry at bedside for eval.
--- NOTE | 2025-04-25 14:29 | PM.PSYCN ---
History of Present Illness Date of Service: 04/25/25 Chief Complaint: AMS Reason for Consult: Depression, Anxiety, ADHD, Tox Positive for PCP, Cocaine, Benzos, Reported abuse of Ritalin, behavior out of character. Requesting physician: Marco Sheriff Sources of Information: patient interviewed, chart reviewed and crisis/core team assessment reviewed HPI Narrative: 59 yo female, history of recurrent major depression, panic, ADHD, ITP, Hodgkins, Hypothyroidsm, Aortic Regurgitation to ER when a friend noticed bizarre behavior from pt-wandering outside, unsteady on her feet, reporting rash sx, and ?blepharitis. Pt seen, sleeping when we met, awakens easily. Reports being sober for 5 years. Reports being in shock with tox positive for cocaine, PCP (Benzodiazepines pt takes daily). Pt does report overtaking Ritalin at times, however cannot be specific in details of dosing. (Amphetaime tox negative). Tearful, labile. Ashlyn Jiménez was here for me at midnight . Pt denies SI,HI, AH,VH. She asks for discharge and a referral to CBT. Past Psychiatric History: Outpatient counseling and day treatment in the past no inpatient level of care Medical Evaluation Reviewed: Yes Review of Systems Review of Systems I feel OK, just tired . [facility] Medical History Aortic regurgitation Idiopathic thrombocytopenic purpura (ITP) Hodgkins lymphoma Surgical History History of splenectomy Social History: Patient grew up in [place] she live with her mother her parents were for 24 years she was an only child her father left family when she was quite young and started a new family she does have a half-brother and half-sister that she has no relationship with she attended school in [place] and did well until her isabell year when she was diagnosed with Hodgkin's disease and was in and out of school for the entire year she went back to school in her senior year she did graduate but she felt estranged from her peers 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 She became disabled after taking care of her mother who got sick in the same year she was it triggered a severe depression and she has been able to work since then Substance History: Tox positive for PCP, Benzodiazepines, Cocaine Trauma History: Yes childhood Diagnostics Vital Signs (24Hr): Vital Signs - 24 hr 04/24/25 22:19 04/25/25 00:24 04/25/25 06:13 Temperature 98.4 F 98.4 F 97.2 F Pulse Rate 103 H 101 H 96 Respiratory Rate 18 14 14 Blood Pressure 159/88 H 133/60 122/96 H Pulse Oximetry 98 98 96 Oxygen Delivery Method Room Air Room Air Room Air 04/25/25 08:00 04/25/25 09:59 Temperature 97.9 F 98.2 F Pulse Rate 77 86 Respiratory Rate 16 19 Blood Pressure 158/67 H 145/90 H Pulse Oximetry 95 100 Oxygen Delivery Method Room Air Room Air BMI result Body Mass Index 26.0 Labs 04/24/25 23:04 04/24/25 23:04 Labs: Laboratory Results - last 48 hr 04/24/25 04/25/25 23:04 08:14 WBC 8.6 RBC 4.03 L Hgb 11.1 L Hct 32.0 L MCV 79.4 L MCH 27.5 MCHC 34.7 RDW 15.3 Plt Count 288 MPV 10.1 Immature Gran % (Auto) 0.1 Neut % (Auto) 50.4 Lymph % (Auto) 32.6 [place] % (Auto) 9.5 Eos % (Auto) 6.3 H Baso % (Auto) 1.1 Lymph # (Auto) 2.8 [place] # (Auto) 0.8 Eos # (Auto) 0.5 H Baso # (Auto) 0.1 Abs Immat Gran (auto) 0.01 Absolute Neuts (auto) 4.3 Absolute Nucleated RBC 0.000 Nucleated RBC % (auto) 0.0 Sodium 138 Potassium 3.3 Chloride 108 Carbon Dioxide 20 L Anion Gap 13 BUN 25 H Creatinine 1.42 H Estim Creat Clear Calc 36.1 Estimated GFR 38 Random Glucose 87 Calcium 9.1 Magnesium 1.9 Total Bilirubin 0.8 AST 29 ALT 18 Alkaline Phosphatase 62 Total Protein 6.8 Albumin 4.2 TSH 0.29 L Urine Color Dark Yellow Urine Appearance Cloudy Urine pH 5.5 Ur Specific [place] >= 1.030 H Urine Protein 30 (1+) H Urine Glucose (UA) Negative Urine Ketones 15 Urine Blood Negative Urine Nitrite Negative Ur Leukocyte Esterase Small (1+) H Urine RBC 0-2 Urine WBC 6-10 H Ur Squamous Epith Cells 11-20 Urine Bacteria Trace Hyaline Casts 11-20 Urine Opiates Screen Not Detected Ur Buprenorphine Scrn Not Detected Ur Oxycodone Screen Not Detected Urine Methadone Screen Not Detected Urine Fentanyl Screen Not Detected Ur Barbiturates Screen Not Detected Ur Phencyclidine Scrn POSITIVE H Ur Amphetamines Screen Not Detected U Benzodiazepines Scrn POSITIVE H Urine Cocaine Screen POSITIVE H U Marijuana (THC) Screen Not Detected Ethyl Alcohol < 10 Mental Status Exam Mental Status Exam Patient Appearance: Fatigued and Disheveled Patient Orientation: Person, Place and Time Level of Consciousness: Restless and Alert Patient Behavior: Talkative, Hyperactive, Cooperative, Restless, Anxious, Fearful, Fatigued, Distractible, Confused and Good Eye Contact Mood Description: Labile Affect Description: Labile Patient Cognition Impaired: Yes Ability to Follow Directions: Fair Speech Pattern: Spontaneous Speech Memory Description: Remote Impaired, Immediate Impaired, Episodic Impaired and Recent Impaired Hallucinations: None Delusions: Not Present Thought Process: Racing and Distracted Thought Content: positive for Flight of Ideas, positive for Circumstantial, positive for Perseveration, positive for Tangential and positive for Suicidal Ideation (denies) Depressive Symptoms: Increased Anxiety, Diff. Making Decisions, Increased Fatigue, Thoughts of /Suicide (denies) and Loss of Energy Abnormal Motor Activity Signs and Symptoms: Hyperactivity Judgement: Poor Medications Allergies Allergies Allergy/AdvReac Type Severity Reaction Status Date / Time apples Allergy Unknown anaphylaxis Uncoded 04/24/25 22:28 TREE NUTS Allergy Unknown RASH Uncoded 04/24/25 22:28 tree nuts Allergy Unknown anaphylaxis Uncoded 04/24/25 22:28 Assessment & Plan Assessment & Plan (1) Major depressive disorder, recurrent, moderate: Status: Acute Code(s): F33.1 - Major depressive disorder, recurrent, moderate (2) Generalized anxiety disorder with panic attacks: Status: Acute Code(s): F41.1 - Generalized anxiety disorder; F41.0 - Panic disorder [episodic paroxysmal anxiety] (3) ADHD: Qualifiers: Attention 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 Qualified Code(s): F90.0 - Attention-deficit hyperactivity disorder, predominantly inattentive type Status: Acute Code(s): F90.9 - Attention-deficit hyperactivity disorder, unspecified type Plan 59 yo female, history of depression, anxiety, ADHD, ITP, Hodgkins, hypothyroidism,aortic regurgitation with mental status changes of questionable etiology. Pt reports recent overtaking of Ritalin yet cannot give specifics. She reports five years of sobriety with tox positive for cocaine, PCP, benzodiazepines. Medically BUN, Creatinine are high, pt with sx anemia, TSH low. Differential includes-substance induced omar, stimulant toxicity, adverse response to Ambien, medical progression of Hodgkins. Suggest admission to in pt psychiatry for further eval and observation. Suggest continue Klonopin, Duloxetine. Suggest holding Ambien, Methylphenidate Suggest B12, Folate, FT4, Iron Profile, EKG, Urine Culture Will follow as needed. Total time managing care of this patient today ____ minutes. Patient educated on: medication risk/benefits and substance abuse Informed Consent: further education needed
--- NOTE | 2025-04-25 18:20 | MHC.CARE ---
Psychiatry met with Pt (Alpa Rosenberg) [facility] has determined that Pt is appropriate for inpatient level of care. ED provider aware and was placed on a section 12A.
[2025-04-25 20:08] VITALS: BP 108/86; PULSE 99; RESP 18; TEMP 36.7; O2SAT 96
--- NOTE | 2025-04-25 21:06 | PC.NURSE ---
pt escorted into pod, pt calm and cooperative, resting at this time. diet and safety order placed
--- NOTE | 2025-04-25 21:10 | MHC.EDTECH ---
Belongings are mocved to locker #9 in the pod
[2025-04-26 05:49] VITALS: BP 132/74; PULSE 84; RESP 16; TEMP 36.1; O2SAT 100
--- NOTE | 2025-04-26 06:10 | PC.NURSE ---
pt resting comfortably throughout the night, no apparent distress noted at this time
--- NOTE | 2025-04-26 08:02 | ECG_ITS ---
Test Reason : R/O PROLONDED QT WAVW Blood Pressure : */* mmHG Vent. Rate : 88 BPM Atrial Rate : 88 BPM P-R Int : 168 ms QRS Dur : 68 ms QT Int : 386 ms P-R-T Axes : 59 1 37 degrees QTcB Int : 467 ms Normal sinus rhythm Cannot rule out Anterior infarct , age undetermined Abnormal ECG When compared with ECG of 20-Oct-2024 14:00, No significant change was found Referred By: Marco Sheriff Electronically Signed By: AMY LONG
--- NOTE | 2025-04-26 10:45 | PHA.MEDREC ---
Addendum entered by Venancio Lara [facility] 04/26/25 10:53: MED REC CHECKED BY [facility] Original Note: Pharmacy Consult ? Medication Reconciliation Pharmacy has reviewed the medication reconciliation done by nursing. Claims match med list.
--- NOTE | 2025-04-26 13:26 | PC.NURSE ---
Patient requested and given phil john. Awaiting bed assignment.
[2025-04-26 13:43] VITALS: BP 113/63; PULSE 111; RESP 18; TEMP 36.9; O2SAT 99
--- NOTE | 2025-04-26 14:20 | MHC.EDTECH ---
This tech took a look in all shelves in ED deanna port, all pod lockers #1-#12, linen closet, laundry closet as well as lost and found with security. No belongings for this pt was found. RN made aware
--- NOTE | 2025-04-26 14:45 | MHC.EDTECH ---
Belongings were found and were transported with pt to
[2025-04-26 15:00] VITALS: BP 121/76; PULSE 82; RESP 18; TEMP 36.6; O2SAT 98
[2025-04-26 15:57] VITALS: BMI 25.5
--- NOTE | 2025-04-26 16:20 | PC.ADMIT ---
Teresita is a 59 year old woman who transferred from the [facility] POD? to via WC at 2:35 pm with dx of MDD, anxiety, and questionable medication reaction. Per CARE team assessment pt was brought to the ED after found wandering around in her condo parking?lot disoriented and jittery/unsteady on feet complaining of a rash and eye infection. In the ED her tox screen was positive for benzos, cocaine, and PCP. She does report taking prescribed Klonopin but? 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 She is also seen by Ashlyn Mittal as an outpt and she was also in shock. Sherrell has a hx of Hodgkins Lymphoma, hypothyroidism, GERD, ADHD, anxiety, and MDD. She reports she takes Duloxetine, Levothyroxine,? Omeprazole,? Klonopin and Ritalin. She also has allergies to tree?nuts and apples- (gets a rash and anaphylaxis) but reports it's ok for her to be around apple?juice/apples and peanut?butter. She reports she took more Ritalin than usual but denies any other substance use. On arrival at [facility] signed a CV with CAW and skin and safety check unremarkable. She was oriented to the unit and admission assessment completed. During admission assessment, she was noted to be anxious and jittery, and speech circumstantial. She feels that when she was brought to the ED she believes?she was experiencing a heat stroke as her house was 100 degrees and she only had a fan running. She also was largely focused on how her providers would perceive her after learning about her positive tox screen. She reports she has built trusting relationships with her PCP and Pat and doesn't want them to think she was lying to them. Provider also discussed the possibility?of false positives and cited possible causes. Sherrell had to be redirected a few times during assessment as she was quite circumstantial and thoughts were sometimes scattered. She denies SI/HI/AVH but did report she has been noticing that when she goes to sleep at night she often will notice voices in the background or background noise even when it's quiet. She reports her depression and anxiety are high due to financial struggles, barely getting by to pay her monthly condo rent? and feeling lonely and isolated. 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 She was given menu selection to complete and placed on 15 min safety checks.?
[2025-04-26 20:00] VITALS: BP 126/72; PULSE 99; RESP 16; TEMP 37.7; O2SAT 98
[2025-04-26] MEDS: DULoxetine HCl 30 MG CAPSULE.DR PO (21:16)
[2025-04-26] MEDS: clonazePAM 0.5 MG TABLET PO (21:16)
[2025-04-26] MEDS: Magnesium Hydrox/Alum Hydrox 30 ML ORAL.SUSP PO (21:39)
[2025-04-27] MEDS: Levothyroxine Sodium 112 MCG TABLET PO (07:11)
[2025-04-27 07:49] VITALS: BP 126/62; PULSE 83; RESP 20; TEMP 36.2; O2SAT 97
[2025-04-27] MEDS: Atorvastatin Calcium 80 MG TABLET PO (08:28)
[2025-04-27] MEDS: Omeprazole 40 MG CAPSULE.DR PO (08:28)
[2025-04-27] MEDS: DULoxetine HCl 30 MG CAPSULE.DR PO ×2 (08:28→20:57)
[2025-04-27 09:17] LABS: Estimated Average Glucose 100 mg/dL; Hemoglobin A1c % 5.1 % (<6.0)
[2025-04-27 09:28] LABS: Cholesterol 295 mg/dL (<200); HDL Cholesterol 64 mg/dL (>40); LDL Cholesterol Calculated 211 mg/dL (<100); Triglycerides 103 mg/dL (<150)
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
[2025-04-27 09:46] LABS: Free T4 (Free Thyroxine) 1.89 ng/dL (0.71-1.85)
[2025-04-27 09:57] LABS: Vitamin B12 152 pg/mL (200-900)
--- NOTE | 2025-04-27 12:59 | HO.PM.IMCN ---
History of Present Illness Data of Consult Service Date: 04/27/25 Primary Care Provider: Unknown Physician HPI Reason for consult: Hypothyroidism 59-year-old female with a past medical history of anxiety, depression, ADHD, PTSD, hypothyroidism, history of Hodgkin's lymphoma at age 16, history of lymphocytosis, history of splenectomy, history of ITP in 2008 treated with steroids and IVIG, has not reoccurred. Patient is followed by Dr. Mittal every 4 months for surveillance. Patient reports that she has been on thyroid medication for several years due to radiation treatments for her Hodgkin's lymphoma at age 16. She reports that she has been on 100 mcg for several years. Last seen in February. Asked to see patient for decreased TSH and elevated free T4. She was seen by her primary care in December 2024 and her previously prescribed levothyroxine 100 mcg was adjusted to 112 mcg due to elevated TSH level at 10.99. On exam she denies any shortness of breath, chest pain, dizziness lightheadedness or any other concerning symptoms. Review of Systems Review of Systems: Denies any shortness of breath, chest pain, dizziness, lightheadedness, abdominal pain or discomfort, nausea vomiting or diarrhea PMFSH Medical History Aortic regurgitation Idiopathic thrombocytopenic purpura (ITP) Hodgkins lymphoma Family History Maternal Aunt Ovarian cancer Family/Other History of breast cancer Father Gelineau syndrome Surgical History History of splenectomy Social History Household Members: None Housing: Condominium Do you presently have visiting nurse or other home services: No Patient Tobacco Use Status: Never used Tobacco Smoked in Last 30 Days: No e-Cigarette/Vaping Use: Never Used Patient Interested in Nicotine Replacement: No Patient Given Instructions on How to Stop Smoking: No Second Hand Smoke Exposure: No Currently Displaying Signs/Symptoms of Drug Intoxication Withdrawal: No Have you been hit, kicked, punched, or otherwise hurt by someone within the past year? If so, by whom?: No Do you feel safe in your current relationship?: No Current Relationship Is there a partner from a previous relationship who is making you feel unsafe now?: No Are you made to feel afraid or neglected: No Spiritual Healthcare Practices: None Druze Healthcare Practices: None Cultural Healthcare Practices: None Advance Directives: No Advance Directives Information Provided: No Do you have thoughts of harming others: None Do you have a plan to hurt others: No Plan Recently lost weight without trying: No How much weight loss: Not applicable Eating poorly because of decreased appetite: No Nutrition screen score: 0 Nutrition Risks: No Nutritional Risk Patient : No : No Poor oral hygiene: No service: No Current occupational status: disabled Gender identity: Female Cognitive needs: No Hearing needs: No Vision needs: No Meds Allergies Allergy/AdvReac Type Severity Reaction Status Date / Time apples Allergy Unknown anaphylaxis Uncoded 04/24/25 22:28 TREE NUTS Allergy Unknown RASH Uncoded 04/24/25 22:28 tree nuts Allergy Unknown anaphylaxis Uncoded 04/24/25 22:28 Active Medications: Current Medications Acetaminophen (Acetaminophen 325 Mg Tablet) 650 mg PO Q6H PRN PRN Reason: Headache/Pain, Scale 1-10 Al Hydroxide/Mg Hydroxide (Magnesium Hydrox/Alum Hydrox 30 Ml Oral.Susp) 30 ml PO Q6H PRN PRN Reason: Heartburn/Nausea Last Admin: 04/26/25 21:39 Dose: 30 ml Atorvastatin Calcium (Atorvastatin Calcium 80 Mg Tablet) 80 mg PO DAILY [facility] Last Admin: 04/27/25 08:28 Dose: 80 mg Clonazepam (Clonazepam 0.5 Mg Tablet) 0.5 mg PO BID PRN PRN Reason: Anxiety Last Admin: 04/26/25 21:16 Dose: 0.5 mg Docusate Sodium (Docusate Sodium 100 Mg Capsule) 100 mg PO BID [facility] Duloxetine HCl (Duloxetine Hcl 30 Mg Capsule.Dr) 30 mg PO BID [facility] Last Admin: 04/27/25 08:28 Dose: 30 mg Hydroxyzine HCl (Hydroxyzine Hcl 50 Mg Tablet) 50 mg PO QID PRN PRN Reason: Anxiety Levothyroxine Sodium (Levothyroxine Sodium 112 Mcg Tablet) 112 mcg PO DAILY@0630 [facility] Last Admin: 04/27/25 07:11 Dose: 112 mcg Magnesium Hydroxide (Milk Of Magnesia 30 Ml Oral.Susp) 30 ml PO DAILY PRN PRN Reason: Constipation Nicotine Polacrilex (Nicotine Polacrilex 2 Mg Gum) 4 mg BUCCAL Q2H PRN PRN Reason: Nicotine Cravings Omeprazole (Omeprazole 40 Mg Capsule.) 40 mg PO DAILY@0630 [facility] Last Admin: 04/27/25 08:28 Dose: 40 mg Trazodone HCl (Trazodone Hcl 50 Mg Tablet) 50 mg PO BEDTIME MRX1 PRN PRN Reason: Insomnia Home Medications ?Medication ?Instructions ?Recorded ?Confirmed ?Last Taken ?Type cholecalciferol (vitamin D3) 1,250 1,250 mcg PO QWEEK 04/26/25 04/26/25 Unknown History mcg (50,000 unit) capsule clonazepam 0.5 mg tablet 0.5 mg PO BID PRN Anxiety 04/26/25 04/26/25 Unknown History duloxetine 30 mg capsule,delayed 30 mg PO BID 04/26/25 04/26/25 Unknown History release hydroxyzine pamoate 50 mg capsule 50 mg PO QID PRN anxiety 04/26/25 04/26/25 Unknown History levothyroxine 112 mcg tablet 112 mcg PO DAILY 04/26/25 04/26/25 Unknown History methylphenidate HCl 20 mg tablet 20 mg PO BID 04/26/25 04/26/25 Unknown History omeprazole 40 mg capsule,delayed 40 mg PO DAILY 04/26/25 04/26/25 Unknown History release rosuvastatin 40 mg tablet 40 mg PO DAILY 04/26/25 04/26/25 Unknown History zolpidem 10 mg tablet 10 mg PO BEDTIME PRN insomnia 04/26/25 04/26/25 Unknown History Physical Exam Vital Signs and Narrative: Vital Signs: Last Vital Signs Temp 97.1 F 04/27/25 07:49 Pulse 83 04/27/25 07:49 Resp 20 04/27/25 07:49 BP 126/62 04/27/25 07:49 Pulse Ox 97 04/27/25 07:49 O2 Del Method Room Air 04/27/25 07:49 BMI result Body Mass Index 25.5 CONST: Alert and oriented, in NAD. Well nourished HEENT: Normocephalic, atraumatic, MMM, Eyes clear, Neck supple RESP: Lungs clear, RRR even and regular HEART:,RRR, S1, S2. No murmur, no edema GI:Abdomen Soft NT, ND. + BS times four :Deferred SKIN: Warm dry and intact, no visible lesions or rashes NEURO:CN II-XII Intact bilaterally, Sensation intact. Speech clear PSYCH: Normal affect Results Labs 04/24/25 23:04 04/24/25 23:04 Labs: Laboratory Results - last 24 hr 04/27/25 08:27 Estimat Average Glucose 100 Hemoglobin A1c % 5.1 Magnesium 2.0 Triglycerides 103 Cholesterol 295 H LDL Cholesterol, Calc 211 H HDL Cholesterol 64 Vitamin B12 152 L Folate 6.0 Free T4 1.89 H Assessment and Plan (1) Hypothyroid: Status: Acute Plan Hypothyroidism Patient with a history of hypothyroidism Recently had her medication adjusted in December due to TSH of 10.99. We will return to her previous dose of 100 mcg We will need to follow up with her primary care doctor on discharge for follow up blood levels in 6 weeks
[2025-04-27] MEDS: clonazePAM 0.5 MG TABLET PO ×2 (13:01→20:57)
[2025-04-27] MEDS: hydrOXYzine HCL 50 MG TABLET PO (13:01)
[2025-04-27 19:31] LABS: Amphetamine Screen Urine Not Detected (Not Detect); Barbiturates, Urine Not Detected (Not Detect); Benzodiazepines Screen Urine Not Detected (Not Detect); Buprenorphine Scr Not Detected (Not Detect); Cannabinoid Screen Urine Not Detected (Not Detect); Cocaine Screen Urine Not Detected (Not Detect); Fentanyl, urine Not Detected (Not Detect); Methadone Screen, Urine Not Detected (Not Detect); Opiate Screen Urine Not Detected (Not Detect); Oxycodone Screen Urine Not Detected (Not Detect); Phencyclidine Screen Urine Not Detected (Not Detect)
[2025-04-27 20:00] VITALS: BP 110/54; PULSE 85; RESP 16; TEMP 37.2; O2SAT 95
[2025-04-28] MEDS: Omeprazole 40 MG CAPSULE.DR PO (06:08)
[2025-04-28] MEDS: Levothyroxine Sodium 100 MCG TABLET PO (06:08)
[2025-04-28 07:57] VITALS: BP 138/59; PULSE 83; RESP 16; TEMP 36.9; O2SAT 99
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
[2025-04-28] MEDS: Atorvastatin Calcium 80 MG TABLET PO (10:24)
[2025-04-28] MEDS: DULoxetine HCl 30 MG CAPSULE.DR PO ×2 (10:24→21:36)
[2025-04-28] MEDS: clonazePAM 0.5 MG TABLET PO (16:12)
[2025-04-28 20:00] VITALS: BP 139/65; PULSE 91; TEMP 36.9; O2SAT 98
[2025-04-28] MEDS: traZODone HCL 50 MG TABLET PO (21:43)
[2025-04-29 07:00] VITALS: BMI 26.3
[2025-04-29] MEDS: Levothyroxine Sodium 100 MCG TABLET PO (07:00)
[2025-04-29] MEDS: Omeprazole 40 MG CAPSULE.DR PO (07:00)
[2025-04-29 08:00] VITALS: BP 114/54; PULSE 83; RESP 16; TEMP 36.9; O2SAT 98
[2025-04-29] MEDS: Atorvastatin Calcium 80 MG TABLET PO (08:59)
[2025-04-29] MEDS: DULoxetine HCl 30 MG CAPSULE.DR PO ×2 (08:59→21:35)
[2025-04-29] MEDS: clonazePAM 0.5 MG TABLET PO ×2 (08:59→17:53)
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
[2025-04-29 20:00] VITALS: BP 120/83; PULSE 100; TEMP 37.1; O2SAT 96
[2025-04-29] MEDS: traZODone HCL 50 MG TABLET PO (21:37)
[2025-04-30] MEDS: Levothyroxine Sodium 100 MCG TABLET PO (06:45)
[2025-04-30] MEDS: Omeprazole 40 MG CAPSULE.DR PO (06:45)
[2025-04-30 07:54] VITALS: BP 128/59; PULSE 77; RESP 16; TEMP 36.8; O2SAT 98
[2025-04-30] MEDS: DULoxetine HCl 30 MG CAPSULE.DR PO (09:03)
[2025-04-30] MEDS: clonazePAM 0.5 MG TABLET PO (09:03)
[2025-04-30] MEDS: Atorvastatin Calcium 80 MG TABLET PO (09:03)
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
== END 2025-04-30 11:20 | disposition home or self-care (01) | DRG 885 ==
LOC: HO.ED 04-25 20:21 → HO.PM5 04-26 13:47
PROVIDERS: Nurse Practitioner Psychiatric/Mental Health; Admitting Provider Clinical Nurse Specialist Psychiatric/Mental Health, Adult; Emergency Provider Internal Medicine; Visit Provider Clinical Nurse Specialist Psychiatric/Mental Health, Adult
DX: F33.1 Major depressive disorder, recurrent, moderate (principal); E03.9 Hypothyroidism, unspecified; F41.1 Generalized anxiety disorder; F90.0 Attention-deficit hyperactivity disorder, predominantly inattentive type; Z79.890 Hormone replacement therapy; Z79.899 Other long term (current) drug therapy
CPT/HCPCS: 36415; 80053; 80061; 80307; 81001; 82607; 82746; 83036; 83735; 84439; 84443; 85025; 87086; 93005; 99285; S9485

== ENCOUNTER → 2025-04-24 22:42 | Outpatient (BNV) | payer MEDICARE, SELFPAY | PROVIDERS: Emergency Provider Internal Medicine; Visit Provider Clinical Nurse Specialist Psychiatric/Mental Health, Adult | DX: F33.1 Major depressive disorder, recurrent, moderate (principal); F90.0 Attention-deficit hyperactivity disorder, predominantly inattentive type; E03.9 Hypothyroidism, unspecified | CPT/HCPCS: 90792; 99231; 99232; 99238 ==

== ENCOUNTER → 2025-04-26 08:02 | Outpatient (BNV) | payer MEDICARE, SELFPAY | PROVIDERS: Admitting Provider Clinical Nurse Specialist Psychiatric/Mental Health, Adult; Emergency Provider Internal Medicine; Visit Provider Internal Medicine | DX: R94.31 Abnormal electrocardiogram [ECG] [EKG] (principal); Z13.6 Encounter for screening for cardiovascular disorders | CPT/HCPCS: 93010 ==

== ENCOUNTER → 2025-04-26 13:46 | Outpatient (BNV) | payer MEDICARE, SELFPAY | PROVIDERS: Admitting Provider Clinical Nurse Specialist Psychiatric/Mental Health, Adult; Emergency Provider Internal Medicine; Visit Provider Nurse Practitioner Family | DX: E03.9 Hypothyroidism, unspecified (principal) | CPT/HCPCS: 99221 ==

== ENCOUNTER 2025-05-27 11:42 | Outpatient (AMB) | payer MEDICARE, SELFPAY ==
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
== END 2025-05-27 13:12 | disposition home or self-care (01) ==
LOC: HO.HOP 11:42
PROVIDERS: PCP Nurse Practitioner Family; Visit Provider Clinical Nurse Specialist Psychiatric/Mental Health
DX: F90.0 Attention-deficit hyperactivity disorder, predominantly inattentive type (principal); F41.1 Generalized anxiety disorder; F41.0 Panic disorder [episodic paroxysmal anxiety]
CPT/HCPCS: 99214

== ENCOUNTER → 2025-05-27 11:42 | Outpatient (BNVA) | payer MEDICARE, SELFPAY | PROVIDERS: PCP Nurse Practitioner Family; Visit Provider Clinical Nurse Specialist Psychiatric/Mental Health | DX: F90.0 Attention-deficit hyperactivity disorder, predominantly inattentive type (principal); F41.1 Generalized anxiety disorder; F41.0 Panic disorder [episodic paroxysmal anxiety] | CPT/HCPCS: 99212 ==

== ENCOUNTER 2025-06-04 11:08 | Outpatient (REF) | payer MEDICARE, SELFPAY ==
--- OUTSIDE RECORDS SUMMARY | 2025-06-04 11:17 | XMS_ITS | Patient Health Record ---
Author Organization [facility] jose alberto [place] Address [address] [place] [address] Care Team Providers Care Lawyer Name Role Phone Pavan CARIAS, Fatmata Primary Care Provider Unav ailable BlackShelbye Unavailable [phone] Reason For Referral No Information Medications Medication SIG (Take, Route, Fr equency, Duration) Notes Start Date End Date Status Vitamin D 2000 UNIT as directed Orally Active Synthroid 25 MCG 1 tablet every morni ng on an empty stomach Orally Once a day; Duration: 30 day(s) Active Problems Problem Type SNOMED Code ICD Code Onset Dates Problem Status W/U Status Risk Notes Problem Onychomycosis (208795208) Onychomycosis (110.1) Active confirmed Problem Pain in limb (41282969) Pain in Limb (729.5) Active confirmed Problem Ingrowing nail (631388230) Ingrowing Nail (703.0) Active confirmed Plan Of Treatment No Information Insurance Providers Payer Name Payer Address Payer Phone Subscriber Number Group Number Insured Name Patient Relationship to Insured Coverage Start Date Coverage End Date [facility] [address] [place] [address] [id number] Krunal Marte Spouse - patient is the spouse of the insured Medical (General) History Medical History History ICD Code anxiety keloids thyroid disorder Surgical History Surgery Date(Month/Year) splenectomy 1982
[2025-06-04 14:26] LABS: MANUAL DIFF FLAG NO
[2025-06-04 14:34] LABS: Hematocrit 39.1 % (37.0-47.0); Hemoglobin 12.8 g/dl (12.0-16.0); Imm Gran Abs Auto 0.01 X10*3/uL (0.00-0.03); Imm Gran Pct Auto 0.1 % (0.0-0.4); Lymphocytes Absolute Auto 4.1 X10*3/uL (1.2-4.9); Mean Corpuscular HGB Conc 32.7 g/dl (31.0-35.0); Mean Corpuscular Hemoglobin 27.6 pg (27.0-33.0); Mean Corpuscular Volume 84.4 fL (80.0-98.0); NRBC Abs Auto 0.000 X10*3/uL (0.0-0.012); NRBC Pct Auto 0.0 /100WBC (0.0-0.2); Platelet Count 349 X10*3/uL (160-400); Red Blood Count 4.63 X10*6/uL (4.20-5.50); White Blood Count 7.5 X10*3/uL (4.8-10.8)
[2025-06-04 15:02] LABS: Alanine Aminotransferase 64 U/L (0-31); Albumin Level 4.5 g/dL (3.5-5.0); Alkaline Phosphatase 85 U/L (39-117); Anion Gap 13 (12-20); Aspartate Amino Transferase 68 U/L (5-31); Blood Urea Nitrogen 15 mg/dL (9-16); Calcium 9.7 mg/dL (8.4-10.2); Carbon Dioxide 28 mmol/L (22-29); Chloride 104 mmol/L (96-108); Estimated Glomerular Filt Rate 45; Potassium 4.0 mmol/L (3.3-5.1); Sodium 141 mmol/L (135-145); Total Protein 7.6 g/dL (6.5-8.0)
== END 2025-06-04 11:09 | disposition home or self-care (01) ==
LOC: HO.HMGCLDS 11:08
PROVIDERS: PCP Nurse Practitioner Family; Visit Provider Nurse Practitioner Family
DX: Z00.00 Encounter for general adult medical examination without abnormal findings (principal); E03.9 Hypothyroidism, unspecified
CPT/HCPCS: 36415; 80053; 84443; 85025

== ENCOUNTER 2025-06-10 10:08 | Outpatient (AMB) | payer MEDICARE, SELFPAY ==
[2025-06-10 10:11] VITALS: BP 120/84; PULSE 103; RESP 16; O2SAT 98; BMI 26.4
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
--- OUTSIDE RECORDS SUMMARY | 2025-06-10 10:38 | XMS_ITS | Patient Health Record ---
Author Organization [facility] jose alberto [place] Address [address] [place] [address] Care Team Providers Care Hunter Name Role Phone Pavan CARIAS, Fatmata Primary Care Provider Unav ailable BlackShelbye Unavailable [phone] Reason For Referral No Information Medications Medication [...] Status W/U Status Risk Notes Problem Onychomycosis (317547034) Onychomycosis (110.1) Active confirmed Problem Pain in limb (16555576) Pain in Limb (729.5) Active confirmed Problem Ingrowing nail (400047295) Ingrowing Nail (703.0) Active confirmed Plan Of Treatment No Information Insurance Providers Payer Name Payer Address Payer Phone Subscriber Number Group Number Insured Name Patient Relationship to Insured Coverage Start Date Coverage End Date [facility] All Others [address] [place] [address] [id number] Marte Spouse - patient is the spouse of the insured Medical (General) History Medical History History ICD Code anxiety keloids thyroid disorder Surgical History Surgery Date(Month/Year) splenectomy 1982
== END 2025-06-10 10:49 | disposition home or self-care (01) ==
LOC: HO.HMCC 10:08
PROVIDERS: PCP Nurse Practitioner Family; Visit Provider Nurse Practitioner Family
DX: F41.8 Other specified anxiety disorders (principal); T14.90XA Injury, unspecified, initial encounter; R74.8 Abnormal levels of other serum enzymes

== ENCOUNTER → 2025-06-10 10:08 | Outpatient (BNVA) | payer MEDICARE, SELFPAY | PROVIDERS: PCP Nurse Practitioner Family; Visit Provider Nurse Practitioner Family | DX: F41.8 Other specified anxiety disorders (principal); R74.8 Abnormal levels of other serum enzymes | CPT/HCPCS: 96127; 99212 ==

== ENCOUNTER 2025-07-20 09:54 | Outpatient (AMB) | payer MEDICARE, SELFPAY ==
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
--- OUTSIDE RECORDS SUMMARY | 2025-07-20 12:46 | XMS_ITS | Patient Health Record ---
Author Organization [facility] jose alberto [place] Address [address] [place] [address] Care Team Providers Care Funder Name Role Phone Pavan CARIAS, Fatmata Primary Care Provider Unav ailable BlackShelbye Unavailable [phone] Reason For Referral No Information Medications Medication [...] Status W/U Status Risk Notes Problem Onychomycosis (681271061) Onychomycosis (110.1) Active confirmed Problem Pain in limb (69760806) Pain in Limb (729.5) Active confirmed Problem Ingrowing nail (447115741) Ingrowing Nail (703.0) Active confirmed Plan Of Treatment No Information Insurance Providers Payer Name Payer Address Payer Phone Subscriber Number Group Number Insured Name Patient Relationship to Insured Coverage Start Date Coverage End Date [facility] All Others [address] [place] [address] [id number] Krun[address] Marte Spouse - patient is the spouse of the insured Medical (General) History Medical History History ICD Code anxiety keloids thyroid disorder Surgical History Surgery Date(Month/Year) splenectomy 1982
== END 2025-07-20 10:44 | disposition home or self-care (01) ==
LOC: HO.HOP 09:54
PROVIDERS: PCP Nurse Practitioner Family; Visit Provider Clinical Nurse Specialist Psychiatric/Mental Health
DX: F33.1 Major depressive disorder, recurrent, moderate (principal); F90.0 Attention-deficit hyperactivity disorder, predominantly inattentive type; F41.1 Generalized anxiety disorder; F41.0 Panic disorder [episodic paroxysmal anxiety]
CPT/HCPCS: 99215

== ENCOUNTER → 2025-07-20 09:54 | Outpatient (REF) | payer MEDICARE, SELFPAY ==
--- NOTE | 2025-07-20 11:03 | ECG_ITS ---
Test Reason : ADHD Blood Pressure : */* mmHG Vent. Rate : 73 BPM Atrial Rate : 73 BPM P-R Int : 208 ms QRS Dur : 70 ms QT Int : 392 ms P-R-T Axes : 57 -1 44 degrees QTcB Int : 431 ms Normal sinus rhythm Normal ECG When compared with ECG of 26-Apr-2025 08:10, No significant change was found Referred By: Pippa Jiménez Electronically Signed By: AMY LONG
== END ==
LOC: HO.CARD 09:54
PROVIDERS: PCP Nurse Practitioner Family; Visit Provider Clinical Nurse Specialist Psychiatric/Mental Health
DX: F90.0 Attention-deficit hyperactivity disorder, predominantly inattentive type (principal); F41.1 Generalized anxiety disorder; F33.1 Major depressive disorder, recurrent, moderate; R01.1 Cardiac murmur, unspecified; Z79.899 Other long term (current) drug therapy
CPT/HCPCS: 93005; 99212

== ENCOUNTER → 2025-07-20 11:03 | Outpatient (BNV) | payer MEDICARE, SELFPAY | PROVIDERS: PCP Nurse Practitioner Family; Visit Provider Internal Medicine | DX: F90.0 Attention-deficit hyperactivity disorder, predominantly inattentive type (principal) | CPT/HCPCS: 93010 ==

== ENCOUNTER 2025-09-08 08:49 | Outpatient (REF) | payer MEDICARE, SELFPAY ==
--- NOTE | ~2025-09-08 | US_ITS ---
CLINICAL HISTORY: R74.8 - Abnormal levels of other serum enzymes US abdomen complete with color Doppler Comparison: None Findings: The visualized pancreas, aorta, and inferior vena cava are unremarkable. Liver normal size and echotexture. Right lobe 11.0 cm length. No focal hepatic masses. Common duct 2.7 mm diameter. Physiologic distention of the gallbladder. No gallstones or sludge. No gallbladder wall thickening. No pericholecystic fluid. No sonographic Desai sign. Right kidney normal size, 8.5 cm in length. Normal cortical width and echotexture. No solid or cystic renal masses. No nephrolithiasis. No hydronephrosis. Left kidney normal, 8.1 cm in length. Normal cortical width and echotexture. No solid or cystic renal masses. No nephrolithiasis. No hydronephrosis. Post splenectomy No ascites. No lymphadenopathy. Impression: 1. Liver normal size and echotexture. 2. Post splenectomy. This document has been electronically signed by: Braden Oconnor MD on 09/08/2025 11:15:59
== END 2025-09-08 08:50 | disposition home or self-care (01) ==
LOC: HO.HMGCX 08:49
PROVIDERS: PCP Nurse Practitioner Family; Visit Provider Nurse Practitioner Family
DX: R74.8 Abnormal levels of other serum enzymes (principal)
CPT/HCPCS: 76700

== ENCOUNTER → 2025-09-08 08:52 | Outpatient (BNV) | payer MEDICARE, SELFPAY | PROVIDERS: PCP Nurse Practitioner Family; Visit Provider Radiology Diagnostic Radiology | DX: R74.8 Abnormal levels of other serum enzymes (principal); Z90.81 Acquired absence of spleen | CPT/HCPCS: 76700 ==

== ENCOUNTER 2025-09-20 15:57 | Outpatient (AMB) | payer MEDICARE, SELFPAY ==
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
== END 2025-09-20 15:58 | disposition home or self-care (01) ==
LOC: HO.HOP 15:57
PROVIDERS: PCP Nurse Practitioner Family; Visit Provider Clinical Nurse Specialist Psychiatric/Mental Health
DX: F33.1 Major depressive disorder, recurrent, moderate (principal); F90.0 Attention-deficit hyperactivity disorder, predominantly inattentive type; F41.1 Generalized anxiety disorder; F41.0 Panic disorder [episodic paroxysmal anxiety]
CPT/HCPCS: 99214